=== PATIENT | female | born 1965 | race American Indian/Alaskan Native ===

== ENCOUNTER 2017-01-02 21:09 | Inpatient (IN) | payer OTHER ==
[2017-01-02 23:05] LABS: Basophils % (Auto) 0.4 % (0.0-1.8); Eosinophils % (Auto) 0.8 % (0.0-4.3); Hematocrit 38.2 % (30.3-42.9); Hemoglobin 12.6 gm/dl (10.1-14.3); Mean Corpuscular HGB Conc 33 % (30-34); Mean Corpuscular Hemoglobin 28 pg (28-32); Mean Corpuscular Volume 84 fl (79-97); Platelet Count 195 K/mm3 (140-440); Red Blood Count 4.52 M/mm3 (3.65-5.03); Red Cell Distribution Width 16.8 % (13.2-15.2)
[2017-01-02 23:21] LABS: Anion Gap 15 mmol/L; BUN/Creatinine Ratio 13.33; Blood Urea Nitrogen 12 mg/dL (7-17); Calcium 9.8 mg/dL (8.4-10.2); Carbon Dioxide 30 mmol/L (22-30); Chloride 95.6 mmol/L (98-107); Glucose 101 mg/dL (65-100); Potassium 3.3 mmol/L (3.6-5.0); Sodium 137 mmol/L (137-145)
[2017-01-03] MEDS ORDERED: K-DUR PO ONE (04:05)
[2017-01-03] MEDS ORDERED: NORVASC PO ONE (04:16)
--- NOTE | 2017-01-03 04:25 | Emergency Department Report ---
HPI - General Chief Complaint: Chest Pain Time Seen by Provider: 01/03/17 04:04 - HPI HPI: This is a 51-year-old -[place] female presents to the emergency department with a three-day history of midsternal nonradiating chest pain, palpitations and some nausea without vomiting. She denies any shortness of breath, back pain, diaphoresis. She is not taken anything for symptoms prior to presentation. She has a past medical history of hypertension, GERD, diabetes. No recent travel or sick contacts at home. She has a primary care doctor but has not seen them regarding her symptoms. The patient had a negative stress test in October 2015. There are no aggravating or alleviating factors. Patient drove himself in to be seen today. ED Past Medical Hx - Past Medical History Previous Medical History?: Yes Hx Hypertension: Yes Hx Diabetes: Yes - Surgical History Past Surgical History?: Yes Hx Cholecystectomy: Yes Additional Surgical History: csection x 3 - Social History Smoking Status: Never Smoker Substance Use Type: None - Medications Home Medications: Home Medications Medication Instructions Recorded Confirmed Last Taken Type Pantoprazole [Protonix TAB] 20 mg PO BID #60 tablet. 10/16/15 10/17/15 Unknown Rx metFORMIN [Glucophage] 1,000 mg PO BID #60 tablet 10/17/15 Unknown Rx Carvedilol [Coreg] 25 mg PO BID #60 tablet 08/02/16 Unknown Rx Hydrochlorothiazide [HCTZ] 25 mg PO QDAY #30 tablet 08/02/16 Unknown Rx Ketorolac [Toradol] 10 mg PO Q6H PRN #20 tablet 08/02/16 Unknown Rx amLODIPine [Norvasc] 10 mg PO DAILY #30 tablet 08/02/16 Unknown Rx cloNIDine [Catapres] 0.1 mg PO DAILY #30 tablet 08/02/16 Unknown Rx ED Review of Systems ROS: Stated complaint: CHEST PAIN Other details as noted in HPI Comment: All other systems reviewed and negative Constitutional: denies: chills, fever Eyes: denies: eye pain, eye discharge, vision change ENT: denies: ear pain, throat pain Respiratory: denies: cough, shortness of breath, wheezing Cardiovascular: chest pain, palpitations Gastrointestinal: nausea. denies: abdominal pain, diarrhea Genitourinary: denies: urgency, dysuria, discharge Musculoskeletal: denies: back pain, joint swelling, arthralgia Skin: denies: rash, lesions Neurological: denies: headache, weakness, paresthesias Physical Exam - Physical Exam Vital Signs: Vital Signs 01/02/17 01/03/17 01/03/17 21:59 01:14 02:53 Temperature 98.3 F 98.4 F Pulse Rate 87 77 Respiratory 18 18 Rate Blood Pressure 136/109 197/105 Blood Pressure [Left] O2 Sat by Pulse 100 99 100 Oximetry 01/03/17 01/03/17 01/03/17 02:55 03:01 03:05 Temperature Pulse Rate 77 68 65 Respiratory 14 16 18 Rate Blood Pressure Blood Pressure [Left] O2 Sat by Pulse 100 99 100 Oximetry 01/03/17 01/03/17 01/03/17 03:10 03:15 03:16 Temperature Pulse Rate 70 86 Respiratory 12 19 18 Rate Blood Pressure 195/105 Blood Pressure [Left] O2 Sat by Pulse 100 99 Oximetry 01/03/17 01/03/17 01/03/17 03:18 03:21 03:25 Temperature Pulse Rate 71 74 Respiratory 19 20 Rate Blood Pressure 195/105 195/105 Blood Pressure 195/105 [Left] O2 Sat by Pulse 98 100 Oximetry 01/03/17 01/03/17 01/03/17 03:30 03:35 03:41 Temperature Pulse Rate 68 70 73 Respiratory 16 16 16 Rate Blood Pressure 182/86 182/86 182/86 Blood Pressure [Left] O2 Sat by Pulse 98 99 97 Oximetry 01/03/17 01/03/17 01/03/17 03:45 03:51 03:55 Temperature Pulse Rate 73 76 75 Respiratory 16 17 16 Rate Blood Pressure 186/90 186/90 186/90 Blood Pressure [Left] O2 Sat by Pulse 98 95 96 Oximetry 01/03/17 01/03/17 04:01 04:05 Temperature Pulse Rate 66 67 Respiratory 20 13 Rate Blood Pressure 186/90 158/77 Blood Pressure [Left] O2 Sat by Pulse 100 Oximetry Physical Exam: GENERAL: The patient is well-developed well-nourished. HEENT: Normocephalic. Atraumatic. Extraocular motions are intact. Patient has moist mucous membranes. Pupils equal reactive to light bilaterally. NECK: Supple. Trachea is midline. CHEST/LUNGS: Clear to auscultation. There is no respiratory distress noted. Chest pain is not reproducible to palpation of the chest wall. HEART/CARDIOVASCULAR: Regular. There is no tachycardia. There is no gallop rub or murmur. ABDOMEN: Abdomen is soft, nontender. Patient has normal bowel sounds. There is no abdominal distention. Morbidly obese habitus. SKIN: Skin is warm and dry. NEURO: The patient is awake, alert, and oriented. The patient is cooperative. The patient has no focal neurologic deficits. The patient has normal speech. MUSCULOSKELETAL: There is no tenderness or deformity. There is no limitation range of motion. There is no evidence of acute injury. ED Course Vital Signs 01/02/17 01/03/17 01/03/17 21:59 01:14 02:53 Temperature 98.3 F 98.4 F Pulse Rate 87 77 Respiratory 18 18 Rate Blood Pressure 136/109 197/105 Blood Pressure [Left] O2 Sat by Pulse 100 99 100 Oximetry 01/03/17 01/03/17 01/03/17 02:55 03:01 03:05 Temperature Pulse Rate 77 68 65 Respiratory 14 16 18 Rate Blood Pressure Blood Pressure [Left] O2 Sat by Pulse 100 99 100 Oximetry 01/03/17 01/03/17 01/03/17 03:10 03:15 03:16 Temperature Pulse Rate 70 86 Respiratory 12 19 18 Rate Blood Pressure 195/105 Blood Pressure [Left] O2 Sat by Pulse 100 99 Oximetry 01/03/17 01/03/17 01/03/17 03:18 03:21 03:25 Temperature Pulse Rate 71 74 Respiratory 19 20 Rate Blood Pressure 195/105 195/105 Blood Pressure 195/105 [Left] O2 Sat by Pulse 98 100 Oximetry 01/03/17 01/03/17 01/03/17 03:30 03:35 03:41 Temperature Pulse Rate 68 70 73 Respiratory 16 16 16 Rate Blood Pressure 182/86 182/86 182/86 Blood Pressure [Left] O2 Sat by Pulse 98 99 97 Oximetry 01/03/17 01/03/17 01/03/17 03:45 03:51 03:55 Temperature Pulse Rate 73 76 75 Respiratory 16 17 16 Rate Blood Pressure 186/90 186/90 186/90 Blood Pressure [Left] O2 Sat by Pulse 98 95 96 Oximetry 01/03/17 01/03/17 04:01 04:05 Temperature Pulse Rate 66 67 Respiratory 20 13 Rate Blood Pressure 186/90 158/77 Blood Pressure [Left] O2 Sat by Pulse 100 Oximetry ED Medical Decision Making - Lab Data Result diagrams: 01/02/17 22:42 01/02/17 22:42 - EKG Data -: EKG Interpreted by Me EKG shows normal: sinus rhythm (occasional PVCs), axis, intervals (prolonged KS interval indicating first-degree AV block), QRS complexes (LVH), ST-T waves Rate: normal - EKG Data When compared to previous EKG there are: no significant change Interpretation: unchanged when compared t (10/16/15) - Radiology Data Radiology results: image reviewed interpreted by me: Chest x-ray did not show any acute process. Heart is normal shape and size. No effusions. No pneumothorax. No signs of pneumonia seen. - Medical Decision Making 51-year-old female presents with a 2-3 day history of midsternal chest pain. Patient has a history of diabetes and hypertension and does present with some elevated blood pressure. Patient last had a stress test about 16 months ago. Patient was evaluated with physical exam, labs, imaging EKG. EKG does not show any signs of ST elevation NH. Patient still has a first-degree AV block and LVH. So far the patient has negative troponins 3. She had an elevated and equivocal d-dimer so the patient will have a CT angiography of the chest. Since patient has a few comorbidities/risk factors and has not had a stress test in about a year and a half, the patient will be admitted to hospital for further evaluation and treatment. Patient has been accepted for admission by the hospitalist, Dr. Ayala. - Differential Diagnosis NH, PE, Costochondritis, Pneumonia, CHF Critical Care Time: No Critical care attestation.: If time is entered above; I have spent that time in minutes in the direct care of this critically ill patient, excluding procedure time. ED Disposition Clinical Impression: Substernal chest pain, Hypertensive urgency Obesity Qualifiers: Obesity type: unspecified obesity type Obesity severity: morbid Qualified Code( s): E66.01 - Morbid (severe) obesity due to excess calories Disposition: OP ADMITTED IP TO THIS HOSP Is pt being admited?: Yes Condition: Stable Instructions: Chest Pain (ED) Referrals: PRIMARY CARE, [Primary Care Provider] - 3-5 Days Time of Disposition: 06:15
--- NOTE | 2017-01-03 05:58 | Admit Criteria Form ---
Admission Criteria Documentation: CARDIOLOGY GRG Clinical Indications for Admission to Inpatient Care ( Place 'X' for any and all applicable criteria): Hospital admission is needed for appropriate care of the patient because of ANY ONE of the following (1): [ ] I. Hemodynamic instability as indicated by ALL of the following (1)(2)(3) (4)(5) [ ]a) Vital signs or other findings not as expected for chronic patient condition or baseline [ ]b) Instability indicated by ANY ONE of the following: [ ]i) Hypotension [ ]ii) Symptomatic Tachycardia unresponsive to treatment ( e.g., analgesia, fluids, sedation as indicated) [ ]iii) Inadequate perfusion indicated by ANY ONE of the following: [ ] 1) Lactic acidosis (> 2 mmol/L) [ ] 2) New abnormal capillary refill (> 3 seconds) [ ] 3) Reduced urine output [ ] 4) New altered mental status [ ]iv) Orthostatic vital sign changes unresponsive to treatment (e.g., fluids) [ ]v) IV inotropic or vasopressor medication required to maintain adequate blood pressure or perfusion [ ] II. Severe heart failure as indicated by ANY ONE of the following(17)(18) [ ]a) Respiratory distress [ ]b) Hypotension [ ]c) Anasarca (refractory to outpatient therapy) [ ]d) Cardiac arrhythmias of immediate concern [ ]e) Myocardial ischemia [ ] III. Cardiac arrhythmias or findings of immediate concern indicated by ANY ONE of the following (19)(20): [ ] a) Heart rhythms that are inherently dangerous or unstable indicated by ANY ONE of the following (21)(22)(23): [ ] i) Resuscitated ventricular fibrillation or cardiac arrest [ ] ii) Ventricular escape rhythm [ ] iii) Sustained ventricular tachycardia (30 seconds or more of ventricular rhythm at greater than 100 beats per minute) [ ] iv) Nonsustained ventricular tachycardia and ANY ONE of the following: [ ] 1) Suspected cardiac ischemia as cause or consequence of ventricular tachycardia [ ] 2) In setting of acute myocarditis [ ] b) Unstable cardiac conduction defects indicated by ANY ONE of the following(23)(24)(25) [ ] i) Type II second-degree atrioventricular block [ ]ii) Third-degree atrioventricular block [ ]iii) New-onset left bundle branch block with suspected myocardial ischemia [ ]c) Any heart rhythm and ANY ONE of the following (21)(22)(26)(27) (28) [ ] i) Continuous long-term ECG monitoring needed (e.g., initiation of drug requiring monitoring for more than 24 hours) [ ] ii) Patient has automatic implanted cardioverter defibrillator that is repeatedly firing, malfunctioning, or in need of immediate adjustment of settings beyond the scope of ambulatory or observation care [ ]d) Heart rhythms of concern due to ANY ONE of the following: [ ] i) Hypotension [ ] ii) Respiratory distress [ ] iii) Association with other significant symptoms (e.g., bradycardia with syncope or ongoing dizziness, supraventricular tachycardia with chest pain (14)(15)(17) [ ] IV. Monitoring for cardiac contusion beyond the scope of observation care needed [A](30)(31)(32) [ ] V. Surgical or device complication (e.g., valve replacement complication , pacemaker dysfunction) (35)(41)(44)(45)(46) [ ] . Inpatient palliative care needed. [B](49) Also use Inpatient Palliative Care Criteria [ ] VII. Nonbacterial thrombotic (marantic) endocarditis (36)(43)(47)(48) [X ] VIII. Cardiology condition, symptom, or finding for which emergency and observation care has failed or are not considered appropriate. [ ] IX. Acute valvular disease requiring inpatient as indicated by ANY ONE of the following (41) [ ]a) Acute valvular regurgitation (42) [ ]b) Noninfectious valvulitis (43) [ ]c) Obstructive valve thrombosis [ ]d) Paravalvular leak [ ]e) Other significant valvular disorder remaining after emergency or observation level of care (as appropriate) [ ]X. Pericardial disease requiring inpatient treatment as indicated by ANY ONE of the following (33)(34)(35)(36)(37) [ ]a) Suspected tamponade (38)(39)(40) [ ]b) Hemopericardium [ ]c) Other significant pericardial disorder remaining after emergency or observation level of care (as appropriate) [ ] XI. Cardiac ischemia beyond scope of emergency and observation care. [ ] XII. Hypertension requiring inpatient treatment as indicated by ANY ONE of the following (6)(7)(8) [ ]a) SBP greater than 220 mm Hg or DBP greater than 120 mmHg despite treatment [ ]b) SBP greater than 140 mm Hg or DBP greater than 100 mm Hg with evidence of acute end organ damage as indicated by ANY ONE of the following [ ] i) Altered mental status [ ] ii) Acute renal failure as indicated by new onset of ANY ONE of the following (9)(10)(11)(12)(13) [ ]1) 3-fold rise in serum creatinine from baseline [ ]2) Serum creatinine greater than 4 mg/dL ( 354 micromoles/L) with acute rise greater than 0.5 mg/dL (44.2 micromoles/L) [ ]3) Reduction of more than 75% in estimated glomerular filtration rate from baseline [ ]4) Estimated glomerular filtration rate less than 35 mL/min/1.73m2 (0.59 mL/sec/1.73m2) in child up to 18 years of age [ ]5) Cessation of urine output indicated by ALL of the following [ ]A. Adequate volume status [ ]B. Inadequate urine output as indicated by ANY ONE of the following [ ]a. Urine output less than 0.3 mL/kg/hr for 24 hours [ ]b. Anuria (urine output less than 0.1 mL/kg/hr) for 12 hours [ ] iii) Aortic dissection [ ] iv) Myocardial Ischemia [ ] v) Left ventricular heart failure [ ]vi) Retinal Hemorrhage [ ]vii) Other significant finding [ ]c) Hypertension in child requiring inpatient treatment as indicated by ALL of the following(14)(15)(16) [ ] i) Outpatient treatment not effective, not available, or not appropriate [ ]ii) SBP or DBP greater than 95th percentile for age [ ]iii) Evidence of acute end organ damage as indicated by ANY ONE of the following [ ]1) Altered mental status [ ]2) Acute renal failure as indicated by new onset of ANY ONE of the following(9)(10)(11)(12)(13) [ ]A. 3-fold rise in serum creatinine from baseline [ ]B. Serum creatinine greater than 4 mg/dL (354 micromoles/L) with acute rise greater than 0.5 mg/dL (44.2 micromoles/L) [ ]C. Reduction of more than 75% in estimated glomerular filtration rate from baseline [ ]D. Estimated glomerular filtration rate less than 35 mL/min/1.73m2 (0.59 mL/sec/1.73m2) in child up to 18 years of age [ ]E. Cessation of urine output indicated by ALL of the following [ ]a. Adequate volume status [ ]b. Inadequate urine output as indicated by ANY ONE of the following [ ]i) Urine output less than 0.3 mL/kg/hr for 24 hours [ ]ii) Anuria ( urine output less than 0.1 mL/kg/hr) for 12 hours [ ]3) Severe headache [ ]4) Visual disturbance [ ]5) Retinal hemorrhage [ ]6) Other significant finding [ ]XIII. Complications of transplanted heart indicated by ANY ONE of the following(61): [ ]a) Acute graft rejection requiring inpatient management (eg, intravenous immunosuppression)(62)(63) [ ]b) Acute graft heart failure indicated by ANY ONE of the following(64): [ ]i) Hemodynamic instability [ ]ii) Cardiac arrhythmias of immediate concern [ ]iii) Pulmonary edema that is very severe (eg, mechanical ventilation needed, imminent or likely, need for 100% oxygen to keep oxygen saturation above 90%) [ ]iv) Pulmonary edema that is persistent as indicated by ALL of the following: [ ]1) New need for oxygen therapy to keep oxygen saturation above 90% (or increased FiO2 need from baseline) [ ]2) Has not improved sufficiently with emergency department or observation care IV diuretics or other heart failure treatments[E] [ ]v) Altered mental status that is severe or persistent [ ]vi) Increased creatinine (new on laboratory test) with reduction of more than 50% in estimated glomerular filtration rate from baseline [ ]vii) Progressively (ongoing) rising creatinine (known from past laboratory test) with reduction of more than 25% in estimated glomerular filtration rate from baseline [ ]viii) Acute renal failure [ ]ix) Acute peripheral ischemia (eg, examination shows pulseless, cool, mottled, or cyanotic extremity) [ ]x) Pulmonary artery catheter monitoring needed [ ]xi) Other sign or symptom of heart failure requiring inpatient treatment (ie, too severe or not responsive to outpatient and observation care treatment) [ ]c) Infection requiring inpatient management (eg, Hemodynamic instability, need for intravenous antimicrobial treatment)(66)(67)(68)(69)(70) [ ]d) Cardiac allograft vasculopathy requiring inpatient management ( eg evidence of cardiac ischemia)(71) [ ]e) Other complication of transplanted heart (eg, stroke, severe pulmonary hypertension, severe valvular dysfunction) requiring inpatient management(72) The original [facility] [employer] content created by [facility] has been revised. The portions of the content which have been revised are identified through the use of italic text or in bold, and [facility] has neither reviewed nor approved the modified material. All other unmodified content is copyright [facility] [email or web address]. Please see references footnoted in the original [facility] [email or web address] edition 2016 Admission Criteria Met: Yes
[2017-01-03] MEDS ORDERED: NACL ONE (06:09)
[2017-01-03] MEDS ORDERED: APRESOLINE IV ONE (06:16)
--- NOTE | 2017-01-03 06:59 | XRay Report ---
FINAL REPORT PROCEDURE: CT ANGIO CHEST TECHNIQUE: Computerized tomographic angiography of the chest was performed after the IV injection of iodinated nonionic contrast including image processing. The image data was postprocessed using 2-dimensional multiplanar reformatted (MPR) and 3-dimensional (MIP and/or volume rendered) techniques. HISTORY: CP, elevated dimer COMPARISON: No prior studies are available for comparison. FINDINGS: Heart and pericardium: Normal. Thoracic aorta: Normal. Pulmonary vasculature: Normal. Lymph nodes: No enlarged thoracic lymph nodes. Lungs: Lungs are well-expanded. There are no infiltrates, effusions or pneumothoraces.. Pleural space: No effusion, thickening, or pneumothorax. Musculoskeletal structures: No significant abnormality. Upper abdominal structures: Images of the upper abdomen demonstrate mucosal thickening of the stomach suggesting possible gastritis. There has been a cholecystectomy.. IMPRESSION: There is no thoracic aortic aneurysm or dissection. There is no pulmonary embolism. Lungs are well-expanded. There are no infiltrates, effusions or pneumothoraces.. Images of the upper abdomen demonstrate mucosal thickening of the stomach suggesting possible gastritis. There has been a cholecystectomy..
--- NOTE | 2017-01-03 07:27 | History and Physical Report ---
History of Present Illness Date of examination: 01/03/17 Date of admission: 01/03/17 Chief complaint: Intermittent chest pain for the last 3 days History of present illness: Very pleasant morbidly obese 51-year-old -Martiniquais female patient with significant past medical history of hypertension diabetes mellitus gastroesophageal reflux disease presented to the emergency room fifth intermittent chest pain of 3 days' duration Patient grades her chest pain between 5-7/10 intermittent last for about 10 min associated with nausea no vomiting and no diaphoresis Patient reports that it radiates to back sometimes, denies any shortness of breath or cough No orthopnea or paroxysmal nocturnal dyspnea, no aggravating or relieving factors Had similar symptoms in the past and had a negative stress test more than one year ago No history of fever no urinary symptoms Initial workup in the emergency room, 3 sets of cardiac enzymes negative EKG no acute ST-T changes, symptoms hemodynamically stable Past History Past Medical History: diabetes, GERD, hypertension Past Surgical History: cholecystectomy, (3) Social history: lives with family, full code, other (employed). denies: smoking , alcohol abuse, prescription drug abuse Family history: hypertension Medications and Allergies Allergies Allergy/AdvReac Type Severity Reaction Status Date / Time NARESH Inhibitors Allergy Anaphylaxis Verified 05/30/14 01:03 Home Medications Medication Instructions Recorded Confirmed Last Taken Type Pantoprazole [Protonix TAB] 20 mg PO BID #60 tablet. 10/16/15 10/17/15 Unknown Rx metFORMIN [Glucophage] 1,000 mg PO BID #60 tablet 10/17/15 Unknown Rx Carvedilol [Coreg] 25 mg PO BID #60 tablet 08/02/16 Unknown Rx Hydrochlorothiazide [HCTZ] 25 mg PO QDAY #30 tablet 08/02/16 Unknown Rx Ketorolac [Toradol] 10 mg PO Q6H PRN #20 tablet 08/02/16 Unknown Rx amLODIPine [Norvasc] 10 mg PO DAILY #30 tablet 08/02/16 Unknown Rx cloNIDine [Catapres] 0.1 mg PO DAILY #30 tablet 08/02/16 Unknown Rx Active Meds: Active Medications Amlodipine Besylate (Norvasc) 10 mg PO DAILY [facility] Aspirin (Aspirin) 325 mg PO QDAY [facility] Carvedilol (Coreg) 25 mg PO BID K[facility] Clonidine HCl (Catapres) 0.1 mg PO DAILY K[facility]URRAM Enoxaparin Sodium (Lovenox) 40 mg SUB-Q QDAY [facility] Hydrochlorothiazide (Hctz) 25 mg PO QDAY [facility] Metformin HCl (Glucophage) 1,000 mg PO BID K[facility]UR[facility] Pantoprazole Sodium (Protonix) 20 mg PO BID [facility] Review of Systems Constitutional: no weight loss, no weight gain, no fever, no chills Ears, nose, mouth and throat: no nasal congestion, no nasal discharge Cardiovascular: chest pain, no orthopnea, no palpitations, no syncope, no lightheadedness, no shortness of breath Respiratory: no cough, no shortness of breath Gastrointestinal: nausea, no abdominal pain, no vomiting Genitourinary Female: no dysuria, no hematuria Musculoskeletal: no myalgias, no arthritis Integumentary: no rash, no lesions Neurological: no weakness, no numbness, no seizures Psychiatric: no anxiety, no depression Endocrine: no cold intolerance, no heat intolerance, no polydipsia, no polyuria Hematologic/Lymphatic: no easy bruising, no easy bleeding Allergic/Immunologic: no urticaria, no allergic rhinitis Exam - Constitutional Vitals: Temp Pulse Resp BP Pulse Ox 98.4 F 79 13 199/102 100 01/03/17 01:14 01/03/17 07:12 01/03/17 04:05 01/03/17 07:12 01/03/17 04:05 General appearance: Present: no acute distress, well-nourished, obese (morbidly obese) - EENT Eyes: Present: PERRL, EOM intact - Neck Neck: Present: supple, normal ROM - Respiratory Respiratory effort: normal Respiratory: bilateral: diminished, negative: rales, rhonchi, wheezing - Cardiovascular Rhythm: regular Heart Sounds: Present: S1 & S2 - Extremities Extremities: no ischemia, pulses intact, pulses symmetrical Peripheral Pulses: within normal limits - Abdominal General gastrointestinal: Present: soft, non-tender, non-distended, normal bowel sounds - Integumentary Integumentary: Present: clear, warm - Musculoskeletal Musculoskeletal: strength equal bilaterally - Psychiatric Psychiatric: appropriate mood/affect, cooperative - Neurologic Neurologic: CNII-XII intact, moves all extremities Results - Labs CBC & Chem 7: 01/02/17 22:42 01/02/17 22:42 Labs: Abnormal lab results 04/03/17 04/03/17 04/04/17 Range/Units 22:42 22:42 04:34 RDW 16.8 H (13.2-15.2) % Lymph % (Auto) 35.1 H (13.4-35.0) % [place] % (Auto) 8.1 H (0.0-7.3) % D-Dimer 384.87 H (0-234) ng/mlDDU Potassium 3.3 L (3.6-5.0) mmol/L Chloride 95.6 L (98-107) mmol/L Glucose 101 H (65-100) mg/dL Assessment and Plan --Angina at rest Rule out acute coronary syndrome, Cardiac enzymes 3 negative, in view of patient's multiple risk factors Would benefit by nuclear stress test to rule out reversible ischemia If abnormal, consult cardiology for possible heart cath Start aspirin and beta blockers and nitrates and statins, no NARESH inhibitor since patient is allergic to them Morphine for pain and Lovenox --Hypertension moderate control Resume home antihypertensives and when necessary medications --2 diabetes mellitus Accu-Chek sliding scale coverage and ADA diet and oral hypoglycemics Patient is on metformin, and had CT angiogram of the chest today Will hold metformin for 48 hours --Morbid obesity Counseling done patient advised dietary modification and exercise as tolerated and weight reduction When medically stable Patient also would benefit by outpatient evaluation by bariatric surgical team for weight reduction program Patient verbalized understanding --DVT prophylaxis with Lovenox Closely monitor the patient and adjust the management as needed Plan of care discussed with the patient as well as her nurse I also discussed the case with the ER physician Disposition admit to telemetry Possible discharge in 1-2 days if stable and if the workup is negative
[2017-01-03] MEDS ORDERED: MORPHINE IV ONE (07:56)
[2017-01-03] MEDS ORDERED: GLUCOPHAGE PO SCH (08:00)
[2017-01-03] MEDS ORDERED: LEXISCAN IV ONE ×2 (09:02→09:08)
[2017-01-03] MEDS ORDERED: LOVENOX SUB-Q SCH (10:00)
[2017-01-03] MEDS ORDERED: COREG PO SCH (10:00)
[2017-01-03] MEDS ORDERED: ASPIRIN PO SCH (10:00)
[2017-01-03] MEDS ORDERED: CATAPRES PO SCH (10:00)
[2017-01-03] MEDS ORDERED: PROTONIX PO SCH (10:00)
[2017-01-03] MEDS ORDERED: HCTZ PO SCH (10:00)
[2017-01-03] MEDS ORDERED: NOVOLOG SUB-Q SCH (11:30)
--- NOTE | 2017-01-03 12:20 | Event Note ---
Date: 01/03/17 Stress test this AM negative for ischemia, EF 64%. Results relayed to ED. Stephen BERGERON NP / DR. WILKINS
--- NOTE | 2017-01-03 13:12 | Treadmill Report ---
PROCEDURE: Single isotope dual study myocardial perfusion scan. REFERRING PHYSICIAN: Natalie Jackson MD DESCRIPTION OF PROCEDURE: The patient received 10 mCi of technetium 99m Myoview intravenously under resting condition. Resting myocardial perfusion scan was done. Subsequently, the patient received intravenous Lexiscan as per the protocol. After 30-60 minutes, post stress images were done. Computerized reconstruction images were performed for analysis. The post-stress images did not reveal any perfusion abnormality. Gated study did not reveal any wall motion abnormality. The left ventricular ejection fraction was normal and was calculated to be 64%. The resting images were also normal. CONCLUSION: 1. Normal resting and stress images after the patient underwent Lexiscan stress test. 2. No wall motion abnormality. 3. Normal left ventricular ejection fraction of 64%. JOB# [id number] [facility]
[2017-01-03 13:38] VITALS: BP 144/77
--- NOTE | 2017-01-03 13:48 | Discharge Summary ---
Providers - Providers Date of Admission: 01/03/17 07:21 Date of discharge: 01/03/17 Attending physician: LORELEI HOGAN Primary care physician: CLOTHING RO[employer] SUPERVISOR Hospitalization Reason for admission: left-sided chest pain Condition: Stable Pertinent studies: Lexiscan stress test; negative for reversible ischemia, normal left ventricular function CT angiogram of the chest; no pulmonary embolism or thoracic aortic aneurysm or dissection, no infiltrate or effusions Mucosal thickening of the stomach suggesting possible gastritis Hospital course: Very pleasant morbidly obese 51-year-old -[place] female patient was admitted with left-sided chest pain Patient had 3 sets of for negative cardiac enzymes, in view of patient's multiple risk factors, patient underwent Lexiscan stress test which was negative for reversible ischemia with preserved left ventricular function Patient was symptomatically managed, symptoms significantly improved Patient is on metformin for her diabetes, however since patient had CT angiogram of the chest with contrast, patient was advised to hold metformin for 48 hours and resume on 01/05/2017 in the morning Today she is comfortable in bed alert awake oriented 3 Vital signs are stable [id number] evaluation physical examination done by me prior to discharge did not have any changes Hemodynamically and clinically stable for discharge and does not need any further acute inpatient care at this point Advise dietary modification and exercise as tolerated and weight reduction Advised to be compensated medications and diet If she should have recurrent chest pain or shortness of, she may need extensive cardiac evaluation as outpatient however advised to go to the emergency room as needed Final diagnosis; Atypical chest pain resolved Stress test negative Symptoms probably secondary to gastroesophageal reflux disease Costochondritis Type 2 diabetes mellitus Hypertension Morbid obesity Disposition: DISCHARGED TO HOME OR SELFCARE Time spent for discharge: 31 Core Measure Documentation - Palliative Care Palliative Care/ Comfort Measures: Not Applicable - Core Measures Any of the following diagnoses?: none Exam - Constitutional Vitals: Temp Pulse Resp BP Pulse Ox 98.4 F 88 22 144/77 100 01/03/17 01:14 01/03/17 13:38 01/03/17 12:41 01/03/17 13:38 01/03/17 12:41 General appearance: Present: no acute distress, well-nourished - EENT Eyes: Present: PERRL, EOM intact - Neck Neck: Present: supple, normal ROM - Respiratory Respiratory effort: normal Respiratory: negative: rales, rhonchi, wheezing - Cardiovascular Rhythm: regular Heart Sounds: Present: S1 & S2 - Extremities Extremities: no ischemia, pulses intact, pulses symmetrical Peripheral Pulses: within normal limits - Abdominal General gastrointestinal: Present: soft, non-tender, non-distended, normal bowel sounds - Integumentary Integumentary: Present: clear, warm - Musculoskeletal Musculoskeletal: strength equal bilaterally, generalized weakness - Psychiatric Psychiatric: appropriate mood/affect, cooperative - Neurologic Neurologic: CNII-XII intact, moves all extremities Plan Activity: no restrictions Diet: low salt, diabetic Additional Instructions: f/u clinical interviewer out patient for further evaluation if you have recurrent chest pain or go to ER. exercise as tolerated and weight reduction. Stop metformin for 48 hours , can resume on 01/05/2017 a.m. Follow up with: PRIMARY CARE, [Primary Care Provider] - 3-5 Days Prescriptions: Carvedilol [Coreg] 25 mg PO BID #60 tablet oxyCODONE /ACETAMINOPHEN [Percocet 5/325] 1 tab PO BID PRN #10 tablet PRN Reason: Pain
[2017-01-04] MEDS ORDERED: NORVASC PO SCH (10:00)
== END 2017-01-03 15:10 | disposition home or self-care (01) | DRG 392 ==
LOC: ED 21:09 → 4A 01-03 07:21
PROVIDERS: ADMIT Internal Medicine; ATTEND Internal Medicine
DX: K21.9 Gastro-esophageal reflux disease without esophagitis (principal); Z68.42 Body mass index [BMI] 45.0-49.9, adult; I10 Essential (primary) hypertension; E11.9 Type 2 diabetes mellitus without complications; E66.01 Morbid (severe) obesity due to excess calories; M94.0 Chondrocostal junction syndrome [Tietze]; Z98.891 History of uterine scar from previous surgery; Z90.49 Acquired absence of other specified parts of digestive tract; Z82.49 Family history of ischemic heart disease and other diseases of the circulatory system; Z88.8 Allergy status to other drugs, medicaments and biological substances; Z71.3 Dietary counseling and surveillance
CPT/HCPCS: 36415; 71010; 71275; 78452; 80048; 82962; 84484; 85025; 85379; 93005; 93010; 93017; A9502; J0360; J2270; J2785; Q9967

== ENCOUNTER 2017-01-09 04:32 | Emergency (ER) | payer OTHER ==
[2017-01-09 05:12] LABS: Basophils % (Auto) 0.3 % (0.0-1.8); Eosinophils % (Auto) 0.7 % (0.0-4.3); Hematocrit 35.2 % (30.3-42.9); Hemoglobin 11.4 gm/dl (10.1-14.3); Mean Corpuscular HGB Conc 32 % (30-34); Mean Corpuscular Hemoglobin 28 pg (28-32); Mean Corpuscular Volume 85 fl (79-97); Platelet Count 197 K/mm3 (140-440); Red Blood Count 4.12 M/mm3 (3.65-5.03); Red Cell Distribution Width 16.2 % (13.2-15.2); White Blood Count 6.1 K/mm3 (4.5-11.0)
[2017-01-09 05:39] LABS: Bilirubin,Urine NEG (Negative)
[2017-01-09 05:40] LABS: Blood,Urine NEG (Negative); Ketones,Urine NEG (Negative); Leukocyte Esterase,Urine NEG (Negative); Nitrite,Urine NEG (Negative); Protein,Urine <15 mg/dL mg/dL (Negative); Urobilinogen,Urine < 2.0 mg/dL (<2.0); WBC,Urine < 1.0 /HPF (0.0-6.0)
[2017-01-09 06:12] LABS: Alanine Aminotransferase 13 units/L (7-56); Albumin 3.5 g/dL (3.9-5); Albumin/Globulin Ratio 0.9 %; Alkaline Phosphatase 84 units/L (35-129); Anion Gap 17 mmol/L; BUN/Creatinine Ratio 8.57; Bilirubin,Total 0.3 mg/dL (0.1-1.2); Blood Urea Nitrogen 6 mg/dL (7-17); Calcium 9.1 mg/dL (8.4-10.2); Carbon Dioxide 27 mmol/L (22-30); Chloride 101.6 mmol/L (98-107); Glucose 124 mg/dL (65-100); Lipase 17 units/L (13-60); Potassium 3.7 mmol/L (3.6-5.0); Sodium 142 mmol/L (137-145); Total Protein 7.4 g/dL (6.3-8.2)
[2017-01-09 08:36] VITALS: BP 150/63
[2017-01-09] MEDS ORDERED: ZOFRAN IM ONE (09:06)
[2017-01-09] MEDS ORDERED: MORPHINE IM ONE (09:06)
[2017-01-09] MEDS ORDERED: ALUM-MAG HYDROX-SIMETH 200-200-20MG/5ML PO ONE (09:06)
[2017-01-09] MEDS ORDERED: LIDOCAINE VISCOUS 2% PO ONE (09:06)
--- NOTE | 2017-01-09 10:16 | Emergency Department Report ---
ED Chest Pain HPI - General Chief Complaint: Chest Pain Stated Complaint: CP/ABD PAIN Time Seen by Provider: 01/09/17 08:54 Source: patient, old records reviewed Mode of arrival: Ambulatory Limitations: No Limitations - History of Present Illness Initial Comments: 51-year-old female with a past medical history hypertension, diabetes, and previous cholecystectomy presents to the hospital complains of chest pain or radiates to the epigastrium 1 week. Patient apparently had similar pain here earlier this month and was subsequently admitted January 03 day for chest pain. During that evaluation patient had a negative Lexiscan stress test, CT angiogram that was negative for PE, dissection, aneurysm, or infiltrates. CT scan coincidentally did have mucosal thickening of the stomach suggesting possible gastritis. Patient was diagnosed with costochondritis and GERD and discharged home with Percocet. Patient is now out of pain medication and reports worsening pain. Chest pain at the sternal area, rated moderate to severe, is intermittent, worse with palpation and movement as is the epigastric pain. Positive nausea without associated vomiting, melena, fever, or hematochezia. No reports of shortness of breath or cough. Patient does admit to recent heavy lifting. PMD: None currently but planning to follow with [facility] Severity scale (0 -10): 10 - Related Data Previous Rx's Medication Instructions Recorded Last Taken Type Hydrochlorothiazide [HCTZ] 25 mg PO QDAY #30 tablet 08/02/16 Unknown Rx Ketorolac [Toradol] 10 mg PO Q6H PRN #20 tablet 08/02/16 Unknown Rx amLODIPine [Norvasc] 10 mg PO DAILY #30 tablet 08/02/16 Unknown Rx cloNIDine [Catapres] 0.1 mg PO DAILY #30 tablet 08/02/16 Unknown Rx Aspirin [Aspirin TAB] 325 mg PO QDAY tablet 01/03/17 Unknown Rx Carvedilol [Coreg] 25 mg PO BID #60 tablet 01/03/17 Unknown Rx oxyCODONE /ACETAMINOPHEN [Percocet 1 tab PO BID PRN #10 tablet 01/03/17 Unknown Rx 5/325] HYDROcodone/APAP 5-325 [[place] 1 each PO Q6HR PRN #20 tablet 01/09/17 Unknown Rx 5/325] Pantoprazole [Protonix TAB] 20 mg PO BID #60 tablet 01/09/17 Unknown Rx traMADol [Ultram 50 MG tab] 50 mg PO Q6HR PRN #20 tablet 01/09/17 Unknown Rx Allergies Allergy/AdvReac Type Severity Reaction Status Date / Time NARESH Inhibitors Allergy Anaphylaxis Verified 05/30/14 01:03 TD score - Td Score Age > 65: (0) No Aspirin use within the Past 7 Days: (0) No 3 or more CAD Risk Factors: (1) Yes 2 or more Angina events in past 24 hrs: (1) Yes Known CAD with more than 50% Stenosis: (0) No Elevated Cardiac Markers: (0) No ST Deviation Greater than 0.5mm: (0) No TD Score: 2 ED Review of Systems ROS: Stated complaint: CP/ABD PAIN Other details as noted in HPI Comment: All other systems reviewed and negative Other: Constitutional: No fevers chills or weight loss Eyes: No eye pain visual changes or discharge ENT: No ear pain or throat pain Neck: Denies pain Respiratory: Denies cough wheezing shortness of breath Cardiovascular: Denies palpitations, syncope GI: As per HPI : Denies dysuria Musculoskeletal: Denies back pain, joint swelling Skin: Denies rash, lesions, erythema Neurologic: Denies headache, numbness, weakness Psychiatric: Denies suicidal ideation, hallucinations ED Past Medical Hx - Past Medical History Previous Medical History?: Yes Hx Hypertension: Yes Hx Diabetes: Yes Additional medical history: Negative Lexiscan stress test December 2069 - Surgical History Past Surgical History?: Yes Hx Cholecystectomy: Yes Additional Surgical History: csection x 3 - Social History Smoking Status: Former Smoker Substance Use Type: None - Medications Home Medications: Home Medications Medication Instructions Recorded Confirmed Last Taken Type Hydrochlorothiazide [HCTZ] 25 mg PO QDAY #30 tablet 08/02/16 Unknown Rx Ketorolac [Toradol] 10 mg PO Q6H PRN #20 tablet 08/02/16 Unknown Rx amLODIPine [Norvasc] 10 mg PO DAILY #30 tablet 08/02/16 Unknown Rx cloNIDine [Catapres] 0.1 mg PO DAILY #30 tablet 08/02/16 Unknown Rx Aspirin [Aspirin TAB] 325 mg PO QDAY tablet 01/03/17 Unknown Rx Carvedilol [Coreg] 25 mg PO BID #60 tablet 01/03/17 Unknown Rx oxyCODONE /ACETAMINOPHEN [Percocet 1 tab PO BID PRN #10 tablet 01/03/17 Unknown Rx 5/325] HYDROcodone/APAP 5-325 [[place] 1 each PO Q6HR PRN #20 tablet 01/09/17 Unknown Rx 5/325] Pantoprazole [Protonix TAB] 20 mg PO BID #60 tablet. 01/09/17 Unknown Rx traMADol [Ultram 50 MG tab] 50 mg PO Q6HR PRN #20 tablet 01/09/17 Unknown Rx ED Physical Exam - General Limitations: No Limitations - Other Other exam information: General: No limitations, patient is alert in no acute distress Head exam: Atraumatic, normocephalic Eyes exam: Normal appearance, pupils equal reactive to light, extraocular movements intact ENT: Moist mucous membrane, normal oropharynx Neck exam: Normal inspection, full range of motion, no meningismus nontender Respiratory exam: Clear to auscultation bilateral, no wheezes, rales, crackles Cardiovascular: Normal rate and rhythm, reproducible chest wall tenderness at the sternum Abdomen: Soft, nondistended, epigastric tenderness, with normal bowel sounds, no rebound, or guarding Extremity: Full range of motion normal inspection no deformity Back: Normal Inspection, full range of motion, no tenderness Neurologic: Alert, oriented x3, cranial nerves intact, no motor or sensory deficit Psychiatric: normal affect, normal mood Skin: Warm, dry, intact ED Course Vital Signs 01/09/17 01/09/17 01/09/17 04:37 08:35 09:41 Temperature 98.7 F 98.2 F Pulse Rate 70 64 Respiratory 18 18 18 Rate Blood Pressure 187/94 Blood Pressure 150/63 [Right] O2 Sat by Pulse 100 98 98 Oximetry - Reevaluation(s) Reevaluation #1: 01/09/17 10:17 Patient seen morphine and Zofran IM for pain in addition to GI cocktail ED Medical Decision Making - Lab Data Result diagrams: 01/09/17 05:01 01/09/17 05:01 Lab Results 01/09/17 01/09/17 01/09/17 Range/Units 05:01 05:01 05:17 WBC 6.1 (4.5-11.0) K/mm3 RBC 4.12 (3.65-5.03) M/mm3 Hgb 11.4 (10.1-14.3) gm/dl Hct 35.2 (30.3-42.9) % MCV 85 (79-97) fl MCH 28 (28-32) pg MCHC 32 (30-34) % RDW 16.2 H (13.2-15.2) % Plt Count 197 (140-440) K/mm3 Lymph % (Auto) 21.5 (13.4-35.0) % [place] % (Auto) 7.5 H (0.0-7.3) % Eos % (Auto) 0.7 (0.0-4.3) % Baso % (Auto) 0.3 (0.0-1.8) % Lymph # 1.3 (1.2-5.4) K/mm3 [place] # 0.5 (0.0-0.8) K/mm3 Eos # 0.0 (0.0-0.4) K/mm3 Baso # 0.0 (0.0-0.1) K/mm3 Seg Neutrophils % 70.0 (40.0-70.0) % Seg Neutrophils # 4.3 (1.8-7.7) K/mm3 Sodium 142 (137-145) mmol/L Potassium 3.7 (3.6-5.0) mmol/L Chloride 101.6 (98-107) mmol/L Carbon Dioxide 27 (22-30) mmol/L Anion Gap 17 mmol/L BUN 6 L (7-17) mg/dL Creatinine 0.7 (0.7-1.2) mg/dL Estimated GFR > 60 ml/min BUN/Creatinine Ratio 8.57 % Glucose 124 H (65-100) mg/dL Calcium 9.1 (8.4-10.2) mg/dL Total Bilirubin 0.3 (0.1-1.2) mg/dL AST 14 (5-40) units/L ALT 13 (7-56) units/L Alkaline Phosphatase 84 (35-129) units/L Troponin T < 0.010 (0.00-0.029) ng/mL Total Protein 7.4 (6.3-8.2) g/dL Albumin 3.5 L (3.9-5) g/dL Albumin/Globulin Ratio 0.9 % Lipase 17 (13-60) units/L Urine Color Yellow (Yellow) Urine Turbidity Clear (Clear) Urine pH 7.0 (5.0-7.0) Ur Specific [place] 1.012 (1.003-1.030) Urine Protein <15 mg/dl (Negative) mg/dL Urine Glucose (UA) Neg (Negative) mg/dL Urine Ketones Neg (Negative) mg/dL Urine Blood Neg (Negative) Urine Nitrite Neg (Negative) Urine Bilirubin Neg (Negative) Urine Urobilinogen < 2.0 (<2.0) mg/dL Ur Leukocyte Esterase Neg (Negative) Urine WBC (Auto) < 1.0 (0.0-6.0) /HPF Urine RBC (Auto) 1.0 (0.0-6.0) /HPF U Epithel Cells (Auto) 2.0 (0-13.0) /HPF 01/09/17 Range/Units 07:33 WBC (4.5-11.0) K/mm3 RBC (3.65-5.03) M/mm3 Hgb (10.1-14.3) gm/dl Hct (30.3-42.9) % MCV (79-97) fl MCH (28-32) pg MCHC (30-34) % RDW (13.2-15.2) % Plt Count (140-440) K/mm3 Lymph % (Auto) (13.4-35.0) % [place] % (Auto) (0.0-7.3) % Eos % (Auto) (0.0-4.3) % Baso % (Auto) (0.0-1.8) % Lymph # (1.2-5.4) K/mm3 [place] # (0.0-0.8) K/mm3 Eos # (0.0-0.4) K/mm3 Baso # (0.0-0.1) K/mm3 Seg Neutrophils % (40.0-70.0) % Seg Neutrophils # (1.8-7.7) K/mm3 Sodium (137-145) mmol/L Potassium (3.6-5.0) mmol/L Chloride (98-107) mmol/L Carbon Dioxide (22-30) mmol/L Anion Gap mmol/L BUN (7-17) mg/dL Creatinine (0.7-1.2) mg/dL Estimated GFR ml/min BUN/Creatinine Ratio % Glucose (65-100) mg/dL Calcium (8.4-10.2) mg/dL Total Bilirubin (0.1-1.2) mg/dL AST (5-40) units/L ALT (7-56) units/L Alkaline Phosphatase (35-129) units/L Troponin T < 0.010 (0.00-0.029) ng/mL Total Protein (6.3-8.2) g/dL Albumin (3.9-5) g/dL Albumin/Globulin Ratio % Lipase (13-60) units/L Urine Color (Yellow) Urine Turbidity (Clear) Urine pH (5.0-7.0) Ur Specific [place] (1.003-1.030) Urine Protein (Negative) mg/dL Urine Glucose (UA) (Negative) mg/dL Urine Ketones (Negative) mg/dL Urine Blood (Negative) Urine Nitrite (Negative) Urine Bilirubin (Negative) Urine Urobilinogen (<2.0) mg/dL Ur Leukocyte Esterase (Negative) Urine WBC (Auto) (0.0-6.0) /HPF Urine RBC (Auto) (0.0-6.0) /HPF U Epithel Cells (Auto) (0-13.0) /HPF - EKG Data -: EKG Interpreted by Me (nsr rate 70, Pac's, no stemi) - EKG Data When compared to previous EKG there are: no significant change (compared to ) - Medical Decision Making Patient has relief in her pain after ED medications. She is not currently taking a PPI at home. She will be discharged home for non-NSAID pain medication and PPI for current symptoms of costochondritis and GERD/gastritis. - Differential Diagnosis gastritis, costochondritis, chest wall strain, atypical chest pain Critical Care Time: No Critical care attestation.: If time is entered above; I have spent that time in minutes in the direct care of this critically ill patient, excluding procedure time. ED Disposition Clinical Impression: Costochondritis Gastritis Qualifiers: Gastritis type: unspecified gastritis Chronicity: unspecified Gastritis bleeding: without bleeding Qualified Code(s): K29.70 - Gastritis, unspecified, without bleeding Disposition: DISCHARGED TO HOME OR SELFCARE Is pt being admited?: No Does the pt Need Aspirin: No Condition: Stable Instructions: Costochondritis (ED), Gastritis (ED) Additional Instructions: Take either the hydrocodone ([place]) or tramadol for pain (do not take both at the same time). Hydrocodone is stronger and may cause more drowsiness. Both of these medications may cause constipation. Take the Prilosec daily as instructed. Follow-up with your primary care doctor for further evaluation Prescriptions: HYDROcodone/APAP 5-325 [[place] 5/325] 1 each PO Q6HR PRN #20 tablet PRN Reason: Pain Pantoprazole [Protonix TAB] 20 mg PO BID #60 tablet. traMADol [Ultram 50 MG tab] 50 mg PO Q6HR PRN #20 tablet PRN Reason: Pain Referrals: DARRYL JOHNSON MD, PHD [Primary Care Provider] - 3-5 Days Time of Disposition: 10:24
== END 2017-01-09 11:03 | disposition home or self-care (01) ==
LOC: ED 04:32
DX: M94.0 Chondrocostal junction syndrome [Tietze] (principal); K29.70 Gastritis, unspecified, without bleeding; I10 Essential (primary) hypertension; E11.9 Type 2 diabetes mellitus without complications
CPT/HCPCS: 36415; 80048; 80053; 81001; 83690; 84484; 85025; 93005; 93010; 96372; 99284; J2270; J2405

== ENCOUNTER 2018-12-07 10:32 | Outpatient (CLI) | payer OTHER ==
--- NOTE | 2018-12-07 15:42 | Mammography Report ---
BILATERAL DIGITAL SCREENING MAMMOGRAM with CAD: 12/07/18 10:32:00 CLINICAL: Routine screening. COMPARISON:None available. FINDINGS: The breasts are almost entirely fatty. No mass, architectural distortion or suspicious calcifications. IMPRESSION: No mammographic evidence of malignancy. BI-RADS CATEGORY: 1 - - Negative RECOMMENDATION: Routine mammographic screening in one year. COMMENT: Patient follow-up letters are generated by our [employer] application.
== END 2018-12-07 10:33 | disposition home or self-care (01) ==
LOC: SPVWC 10:32
DX: Z12.31 Encounter for screening mammogram for malignant neoplasm of breast (principal); E66.9 Obesity, unspecified; I10 Essential (primary) hypertension; M19.90 Unspecified osteoarthritis, unspecified site; Z90.49 Acquired absence of other specified parts of digestive tract
CPT/HCPCS: 77067

== ENCOUNTER 2019-06-02 01:39 | Observation (INO) | payer OTHER ==
--- NOTE | 2019-06-02 02:37 | XRay Report ---
CHEST 1 VIEW 06/02/2019 2:26 AM INDICATION / CLINICAL INFORMATION: Chest Pain. COMPARISON: Chest x-ray 08/12/2018 FINDINGS: SUPPORT DEVICES: None. HEART / MEDIASTINUM: No significant abnormality. LUNGS / PLEURA: No significant pulmonary or pleural abnormality. No pneumothorax. ADDITIONAL FINDINGS: No significant additional findings. IMPRESSION: 1. No acute findings. Signer Name: Ron Christiansen MD Signed: 06/02/2019 2:32 AM Workstation Name: [id number]
[2019-06-02 03:06] LABS: Basophils % (Auto) 0.4 % (0.0-1.8); Eosinophils % (Auto) 0.8 % (0.0-4.3); Hematocrit 34.9 % (30.3-42.9); Hemoglobin 11.7 gm/dl (10.1-14.3); Lymphocytes # (Auto) 1.7 K/mm3 (1.2-5.4); Lymphocytes % (Auto) 34.9 % (13.4-35.0); Mean Corpuscular HGB Conc 34 % (30-34); Mean Corpuscular Volume 85 fl (79-97); Monocytes # (Auto) 0.3 K/mm3 (0.0-0.8); Platelet Count 215 K/mm3 (140-440); Red Blood Count 4.12 M/mm3 (3.65-5.03); Red Cell Distribution Width 16.7 % (13.2-15.2)
[2019-06-02 03:24] LABS: BUN/Creatinine Ratio 16; Blood Urea Nitrogen 13 mg/dL (7-17); Calcium 9.7 mg/dL (8.4-10.2); Hemolysis Index 15
[2019-06-02] MEDS ORDERED: ASPIRIN PO ONE (03:55)
[2019-06-02] MEDS ORDERED: NITROSTAT SL PRN ×2 (03:55→05:03)
--- NOTE | 2019-06-02 04:31 | Emergency Department Report ---
ED Chest Pain HPI - General Chief Complaint: Chest Pain Stated Complaint: CHEST/BACK PAIN Time Seen by Provider: 06/02/19 03:49 Source: patient Mode of arrival: Ambulatory Limitations: No Limitations - History of Present Illness Initial Comments: Patient is a 54-year-old female with past history of diabetes hypertension who had a stress test December 2016 which was negative presenting with chest pressure. His chest pain is 8 out of 10 in severity at its worse and is associated with diaphoresis. There's been no nausea. Patient does have assoc iated shortness of breath. Patient states that the shortness of breath and chest heaviness, occur at random. Patient states she is getting it with exertion and sometimes with rest. She denies fevers chills cough cold congestion at this time. Patient also states that she has a history of chronic lower back pain over this is not usually associated with chest pain. Severity scale (0 -10): 7 - Related Data Previous Rx's Medication Instructions Recorded Last Taken Type amLODIPine [Norvasc] 10 mg PO DAILY #30 tablet 08/02/16 Unknown Rx cloNIDine [Catapres] 0.1 mg PO DAILY #30 tablet 08/02/16 Unknown Rx hydroCHLOROthiazide [HCTZ] 25 mg PO QDAY #30 tablet 08/02/16 Unknown Rx Aspirin 325 mg PO QDAY tablet 01/03/17 Unknown Rx Carvedilol [Coreg] 25 mg PO BID #60 tablet 01/03/17 Unknown Rx traMADol [Ultram 50 MG tab] 50 mg PO Q6HR PRN tablet 08/13/18 Unknown Rx Allergies Allergy/AdvReac Type Severity Reaction Status Date / Time NARESH Inhibitors Allergy Anaphylaxis Verified 05/30/14 01:03 Heart Score - HEART Score History: Moderately suspicious EKG: Non-specific Age: 45-65 Risk factors: 1-2 risk factors Troponin: < normal limit HEART Score: 4 ED Review of Systems ROS: Stated complaint: CHEST/BACK PAIN Other details as noted in HPI Comment: All other systems reviewed and negative ED Past Medical Hx - Past Medical History Previous Medical History?: Yes Hx Hypertension: Yes Hx Congestive Heart Failure: No Hx Diabetes: Yes Hx Arthritis: Yes Hx Asthma: No Hx COPD: No Additional medical history: Negative Lexiscan stress test December 2016. gout, Gallstones - Surgical History Past Surgical History?: Yes Hx Cholecystectomy: Yes Additional Surgical History: csection x 3 - Social History Smoking Status: Never Smoker - Medications Home Medications: Home Medications Medication Instructions Recorded Confirmed Last Taken Type amLODIPine [Norvasc] 10 mg PO DAILY #30 tablet 08/02/16 08/12/18 Unknown Rx cloNIDine [Catapres] 0.1 mg PO DAILY #30 tablet 08/02/16 08/12/18 Unknown Rx hydroCHLOROthiazide [HCTZ] 25 mg PO QDAY #30 tablet 08/02/16 08/12/18 Unknown Rx Aspirin 325 mg PO QDAY tablet 01/03/17 08/12/18 Unknown Rx Carvedilol [Coreg] 25 mg PO BID #60 tablet 01/03/17 08/12/18 Unknown Rx traMADol [Ultram 50 MG tab] 50 mg PO Q6HR PRN tablet 08/13/18 Unknown Rx ED Physical Exam - General Limitations: No Limitations General appearance: alert, in no apparent distress - Head Head exam: Present: atraumatic, normocephalic - Eye Eye exam: Present: normal appearance, PERRL, EOMI - ENT ENT exam: Present: mucous membranes moist - Neck Neck exam: Present: normal inspection - Respiratory Respiratory exam: Present: normal lung sounds bilaterally. Absent: respiratory distress, wheezes, rales, rhonchi - Cardiovascular Cardiovascular Exam: Present: regular rate, normal rhythm. Absent: systolic murmur, diastolic murmur, rubs, gallop - GI/Abdominal GI/Abdominal exam: Present: soft, normal bowel sounds. Absent: distended, tenderness, guarding, rebound, rigid - Extremities Exam Extremities exam: Present: normal inspection - Back Exam Back exam: Present: normal inspection - Neurological Exam Neurological exam: Present: alert, oriented X3 - Psychiatric Psychiatric exam: Present: normal affect, normal mood - Skin Skin exam: Present: warm, dry, intact, normal color. Absent: rash ED Course Vital Signs 06/02/19 06/02/19 06/02/19 01:56 04:00 04:15 Temperature 98.8 F 98.9 F Pulse Rate 75 75 75 Respiratory 16 18 Rate Blood Pressure 225/101 161/82 Blood Pressure 161/82 [Left] O2 Sat by Pulse 99 95 Oximetry TD score - Td Score Age > 65: (0) No Aspirin use within the Past 7 Days: (0) No 3 or more CAD Risk Factors: (1) Yes 2 or more Angina events in past 24 hrs: (1) Yes Known CAD with more than 50% Stenosis: (0) No Elevated Cardiac Markers: (0) No ST Deviation Greater than 0.5mm: (0) No TD Score: 2 ED Medical Decision Making - Lab Data Result diagrams: 06/02/19 02:46 06/02/19 02:46 Lab Results 06/02/19 06/02/19 Range/Units 02:46 02:46 WBC 5.0 (4.5-11.0) K/mm3 RBC 4.12 (3.65-5.03) M/mm3 Hgb 11.7 (10.1-14.3) gm/dl Hct 34.9 (30.3-42.9) % MCV 85 (79-97) fl MCH 28 (28-32) pg MCHC 34 (30-34) % RDW 16.7 H (13.2-15.2) % Plt Count 215 (140-440) K/mm3 Lymph % (Auto) 34.9 (13.4-35.0) % [place] % (Auto) 5.0 (0.0-7.3) % Eos % (Auto) 0.8 (0.0-4.3) % Baso % (Auto) 0.4 (0.0-1.8) % Lymph # 1.7 (1.2-5.4) K/mm3 [place] # 0.3 (0.0-0.8) K/mm3 Eos # 0.0 (0.0-0.4) K/mm3 Baso # 0.0 (0.0-0.1) K/mm3 Seg Neutrophils % 58.9 (40.0-70.0) % Seg Neutrophils # 2.9 (1.8-7.7) K/mm3 Sodium 141 (137-145) mmol/L Potassium 3.9 (3.6-5.0) mmol/L Chloride 100.8 (98-107) mmol/L Carbon Dioxide 31 H (22-30) mmol/L Anion Gap 13 mmol/L BUN 13 (7-17) mg/dL Creatinine 0.8 (0.7-1.2) mg/dL Estimated GFR > 60 ml/min BUN/Creatinine Ratio 16 % Glucose 115 H (65-100) mg/dL Calcium 9.7 (8.4-10.2) mg/dL Troponin T < 0.010 (0.00-0.029) ng/mL - EKG Data -: EKG Interpreted by Me EKG shows normal: sinus rhythm, axis, intervals, QRS complexes, ST-T waves Rate: normal - EKG Data Interpretation: normal EKG - Radiology Data Radiology results: report reviewed (CXR WNL) - Medical Decision Making Patient is a 54-year-old female with past medical history of hypertension diabetes and hypercholesterolemia who is presenting with chest discomfort. Patient blood pressure was very elevated on arrival. She did take her on clonidine which she did not take yesterday which did bring the pressure down to 160 systolic. Patient given nitroglycerin and aspirin. Patient has not had a cardiac workup in several years and the patient will be admitted for observation. Critical care attestation.: If time is entered above; I have spent that time in minutes in the direct care of this critically ill patient, excluding procedure time. ED Disposition Clinical Impression: Hypertensive urgency, Substernal chest pain, Noncompliance Disposition: 09 OP ADMIT IP TO THIS HOSP Is pt being admited?: Yes Does the pt Need Aspirin: No Condition: Stable Instructions: Chest Pain (ED) Time of Disposition: 04:33
[2019-06-02] MEDS ORDERED: MORPHINE IV PRN (05:04)
[2019-06-02] MEDS ORDERED: ZOFRAN IV PRN (05:04)
[2019-06-02] MEDS ORDERED: TYLENOL PO PRN (05:05)
[2019-06-02] MEDS ORDERED: D50W (25GM) Syringe IV PRN (05:19)
--- NOTE | 2019-06-02 05:52 | History and Physical Report ---
CHIEF COMPLAINT: Chest pain. Other complaint includes lower back pain and knee pain. HISTORY OF PRESENT ILLNESS: The patient is a 54-year-old female who said she has been having lower back pain and knee pain going on, but said the pain became severe in the last 24-48 hours. Also, the patient complaining about pressure-like chest pain in the retrosternal area going on for 2 days and associated with shortness of breath and diaphoresis. There is no history of nausea or vomiting. No history of cough or fever and the patient presented for evaluation in the Emergency Room, where she was found to have very high blood pressure, measuring about 225/101. PAST MEDICAL HISTORY: Pertinent for hypertension, diabetes mellitus. Also, the patient has past medical history of arthritis, obesity, gout, gallstone. PAST SURGICAL HISTORY: Pertinent for cholecystectomy, x 3 and negative Lexiscan stress test in 2017 in this hospital. FAMILY HISTORY: Reviewed and noncontributory. SOCIAL HISTORY: The patient does not smoke, does not drink alcohol and does not use illicit drugs. MEDICATIONS: The patient is on amlodipine 10 mg by mouth daily, clonidine 0.1 mg by mouth daily, hydrochlorothiazide 25 mg by mouth daily, aspirin 325 mg by mouth daily, Coreg or carvedilol 25 mg by mouth twice daily, Ultram or tramadol 50 mg by mouth every 6 hours as needed for pain. ALLERGIES: The patient is allergic to NARESH INHIBITORS. REVIEW OF SYSTEMS: CONSTITUTIONAL: There is no fever. There is no chills, but there is diaphoresis. HEENT: There is no headache or sore throat. CARDIOVASCULAR SYSTEM: Chest pain is present. No orthopnea. RESPIRATORY SYSTEM: Shortness of breath is present. There is no cough. GASTROINTESTINAL SYSTEM: There is no nausea, no vomiting, no abdominal pain, diarrhea or constipation. NEUROLOGICAL SYSTEM: There is no numbness, no dizziness, no altered mental status. MUSCULOSKELETAL SYSTEM: Low back pain noted. Knee pain noted. No joint swelling. DERMATOLOGICAL SYSTEM: There is no skin rash or itching. GENITOURINARY SYSTEM: There is no dysuria, hematuria, or flank pain. Rest of system review is normal. PHYSICAL EXAMINATION: GENERAL: At the time of exam, the patient was found to be alert, oriented x 3 and not in acute distress. VITAL SIGNS: At the initial time of presentation showed temperature of 98.8 degrees Fahrenheit, pulse of 75, respirations 16, blood pressure of 225/101, which later came down to 161/82 with treatment and O2 sat of 99% on room air. HEENT: Showed pupils to be equal, round, reactive to light and accommodating. Extraocular muscles are intact. NECK: Supple with no JVD or carotid bruits. CARDIOVASCULAR SYSTEM: Showed normal first and second heart sounds with no gallops or murmurs. RESPIRATORY SYSTEM: Showed good air entry on both sides of the lungs with no abnormal breath sounds. GASTROINTESTINAL SYSTEM: Show abdomen to be full, soft, nontender with no organomegaly or rigidity. NEUROLOGIC: Shows no focal deficit. MUSCULOSKELETAL SYSTEM: Show no joint swelling or tenderness. DERMATOLOGICAL SYSTEM: Show no skin rash. GENITOURINARY SYSTEM: Showing no costovertebral angle tenderness. PERTINENT LABORATORY AND IMAGING STUDIES: The patient had chest x-ray done that shows no acute findings. Also, the patient had lab test done with CBC coming back unremarkable. The patient's chemistry shows elevated CO2 of 31 with normal electrolytes. First troponin level came back normal. DIAGNOSES: 1. Chest pain. 2. Hypertensive crisis. 3. Low back and knee pain. 4. Diabetes mellitus. PLAN OF CARE: 1. The patient will be admitted to telemetry as inpatient. 2. The patient will have x-ray of the lower back and knee done this morning. 3. The patient will have cardiac enzymes involving troponin, total CK, and CK-MB checked every 6 hours x 2 more levels. 4. The patient will have Lexiscan stress test done on 06/03/2019 while being n.p.o. after midnight today. 5. The patient will be on IV hydralazine 10 mg every 4 hours for blood pressure of 150/90 or more. 6. The patient will be on aspirin 325 mg by mouth daily and will be on Tylenol 650 mg by mouth every 4 hours for fever and headache. 7. The patient will be on nitro paste half inch to anterior chest wall q.i.d. and will be on Nitrostat 0.4 mg sublingual every 5 minutes as needed for breakthrough chest pain. 8. The patient will be on morphine 2 mg IV every 3 hours as needed for chest pain and IV Zofran 4 mg every 8 hours as needed for nausea and vomiting. 9. The patient will be on heparin 5000 units subcutaneous q. 12 hours for DVT prophylaxis and will be on oxygen by nasal cannula at 2 liters per minute. 10. The patient will be on Accu-Chek before meals and at bedtime, followed by low-dose sliding scale using regular insulin coverage. JOB# [id number] OCN/NTS
[2019-06-02] MEDS: NITRO-BID 2% TP SCH ×4 (06:25→17:51)
--- NOTE | 2019-06-02 06:25 | XRay Report ---
BILATERAL KNEES 6 VIEWS TOTAL, 3 VIEWS EACH INDICATION / CLINICAL INFORMATION: ACUTE PAIN. COMPARISON: None available. FINDINGS: Right knee: Moderate tricompartmental degenerative arthrosis is seen within the right knee most prono unced within the medial femoral tibial compartment. No fracture, dislocation or right knee effusion i s present. Left knee: Advanced tricompartmental left knee degenerative arthrosis is present without visualized f racture, dislocation or knee effusion. Signer Name: Ron Christiansen MD Signed: 06/02/2019 6:21 AM Workstation Name: [id number]
--- NOTE | 2019-06-02 06:26 | XRay Report ---
LUMBAR SPINE 3 VIEWS INDICATION / CLINICAL INFORMATION: ACUTE PAIN. COMPARISON: None available. FINDINGS: VERTEBRAE: No fracture. No significant malalignment. DISC SPACES:Mild discogenic degenerative disease at T9-L5. FACET JOINTS:No significant abnormality. ADDITIONAL FINDINGS: None. IMPRESSION: 1. No significant abnormality. Signer Name: Ron Christiansen MD Signed: 06/02/2019 6:21 AM Workstation Name: [id number]
[2019-06-02 06:46] LABS: Creatine Kinase MB 2.1 ng/mL (0.0-4.0)
[2019-06-02] MEDS: HumuLIN R SUB-Q SCH ×3 (08:59→17:41)
[2019-06-02] MEDS: ASPIRIN PO SCH (10:56)
[2019-06-02] MEDS: APRESOLINE IV PRN ×2 (10:56→17:53)
[2019-06-02] MEDS: HEPARIN SUB-Q SCH ×2 (10:57→21:54)
--- NOTE | 2019-06-02 12:08 | Event Note ---
Date: 06/02/19 Patient seen and examined Admitted with Chest pain, monitor clinically with medical Mx, stress test tomorrow
[2019-06-02] MEDS: PROTONIX PO SCH (12:50)
[2019-06-02] MEDS: CATAPRES PO SCH (13:13)
[2019-06-02] MEDS: NORVASC PO SCH (13:13)
[2019-06-02] MEDS: HCTZ PO SCH (13:15)
[2019-06-02 13:51] LABS: Creatine Kinase MB 2.3 ng/mL (0.0-4.0)
[2019-06-02] MEDS: PERCOCET 5/325 PO PRN ×2 (14:26→21:55)
[2019-06-02] MEDS: COREG PO SCH (21:54)
[2019-06-02] MEDS: APRESOLINE PO SCH (21:54)
[2019-06-02] MEDS ORDERED: HumuLIN R SUB-Q SCH (22:00)
[2019-06-03] MEDS ORDERED: MORPHINE IV ONE (01:37)
[2019-06-03] MEDS: PERCOCET 5/325 PO PRN ×2 (05:08→13:57)
[2019-06-03] MEDS: NITRO-BID 2% TP SCH ×3 (05:12→13:49)
[2019-06-03] MEDS ORDERED: LEXISCAN IV ONE ×2 (08:08→09:00)
[2019-06-03] MEDS: HumuLIN R SUB-Q SCH ×2 (08:23→12:24)
[2019-06-03] MEDS ORDERED: NORVASC PO SCH (10:00)
[2019-06-03] MEDS ORDERED: ZYLOPRIM PO SCH (10:00)
[2019-06-03] MEDS ORDERED: HCTZ PO SCH (10:00)
[2019-06-03] MEDS ORDERED: CATAPRES PO SCH (10:00)
[2019-06-03] MEDS: COREG PO SCH (10:13)
[2019-06-03] MEDS: ASPIRIN PO SCH (10:13)
[2019-06-03] MEDS: CATAPRES PO SCH (10:14)
[2019-06-03] MEDS: NORVASC PO SCH (10:15)
[2019-06-03] MEDS: PROTONIX PO SCH (10:15)
[2019-06-03] MEDS: APRESOLINE PO SCH (10:15)
[2019-06-03] MEDS: HCTZ PO SCH (10:17)
[2019-06-03] MEDS: HEPARIN SUB-Q SCH (10:17)
--- NOTE | 2019-06-03 10:31 | Treadmill Report ---
NUCLEAR PERFUSION SCAN REFERRING PHYSICIAN: Hospitalist service. PROTOCOL: The patient was brought to the stress lab in a postoperative state, given 10 mCi of technetium 99m at rest. The patient underwent rest imaging. The patient underwent Lexiscan stress test. At peak stress, the patient was given 26 mCi of technetium 99m. Shortly thereafter, the patient underwent stress imaging. Interpretation of raw imaging reveals significant GI artifact large body habitus. Technically difficult study, grossly no evidence of a significant fixed or reversible defect in this technically difficult study. Gated wall motion reveals ejection fraction of approximately 55%. No TID. CONCLUSIONS: 1. Technically difficult study due to body habitus, but grossly no evidence of significant degree of ischemia or prior infarction. 2. Normal left ventricular systolic performance, estimated ejection fraction of 55% without TID. 3. Normal Lexiscan stress test without evidence of diagnostic ST changes, arrhythmias or chest pain during stress or recovery. [facility]# [id number] RAJAN/LUCILLE
[2019-06-03 12:07] VITALS: BP 135/72
--- NOTE | 2019-06-03 12:41 | Discharge Summary ---
Providers - Providers Date of Admission: 06/02/19 04:56 Date of discharge: 06/03/19 Attending physician: JOSELITO COLLAZO Primary care physician: DARRYL JOHNSON Hospitalization Condition: Stable Hospital course: This is a 54-year-old female with a history of morbid obesity, hypertension, diabetes mellitus type 2 on oral hypoglycemic medication presented to the hospital with complaints of chest pain and blood pressure of 225/101. Patient was evaluated in the ER, initial cardiac enzyme and EKG was unremarkable, chest x-ray showed no infiltrates. Patient was admitted and underwent myocardial stress test which was normal. High home blood pressure medications were resumed and adjusted. Patient was then discharged home in stable condition with outpatient follow-up. Discharge diagnosis: Atypical chest pain, likely from GERD Hypertensive Urgency Morbid obesity DM type 2 Chronic back and knee pain Disposition: TO HOME OR SELFCARE Time spent for discharge: 34 minutes Core Measure Documentation - Palliative Care Palliative Care/ Comfort Measures: Not Applicable - Core Measures Any of the following diagnoses?: none Exam - Constitutional Vitals: Temp Pulse Resp BP Pulse Ox 98.8 F 71 16 135/72 100 06/03/19 11:57 06/03/19 11:57 06/03/19 11:57 06/03/19 11:57 06/03/19 11:57 General appearance: Present: no acute distress, obese - EENT Eyes: Present: PERRL ENT: hearing intact, clear oral mucosa - Neck Neck: Present: supple, normal ROM - Respiratory Respiratory effort: normal Respiratory: bilateral: CTA - Cardiovascular Heart Sounds: Present: S1 & S2. Absent: rub, click - Extremities Extremities: pulses symmetrical, No edema Peripheral Pulses: within normal limits - Abdominal General gastrointestinal: Present: soft, non-tender, non-distended, normal bowel sounds - Integumentary Integumentary: Present: clear, warm, dry - Musculoskeletal Musculoskeletal: gait normal, strength equal bilaterally - Psychiatric Psychiatric: appropriate mood/affect, intact judgment & insight - Neurologic Neurologic: CNII-XII intact, moves all extremities Plan Activity: advance as tolerated Weight Bearing Status: Weight Bear as Tolerated Diet: low fat, low salt Special Instructions: record daily BP diary Follow up with: DARRYL JOHNSON MD, PHD [Primary Care Provider] - 7 Days Prescriptions: AtorvaSTATin [Lipitor] 40 mg PO QHS #30 tablet Aspirin EC [Halfprin EC] 81 mg PO QDAY #30 tablet. Pantoprazole [Protonix TAB] 40 mg PO QDAY #30 tablet
== END 2019-06-03 17:52 | disposition home or self-care (01) ==
LOC: SUATTDRO 01:39 → ED 01:39 → 4A 04:56 → INTOOBSV 04:56
PROVIDERS: ADMIT Internal Medicine; ATTEND Internal Medicine
DX: R07.89 Other chest pain (principal); I16.9 Hypertensive crisis, unspecified; I11.0 Hypertensive heart disease with heart failure; I50.9 Heart failure, unspecified; M54.5 Low back pain; E11.9 Type 2 diabetes mellitus without complications; M25.569 Pain in unspecified knee; M19.90 Unspecified osteoarthritis, unspecified site; Z79.82 Long term (current) use of aspirin
CPT/HCPCS: 36415; 71045; 72100; 73560; 78452; 80048; 82550; 82553; 82962; 84484; 85025; 93005; 93010; 93017; 94760; 96372; 96374; 96375; 96376; 99284; A9270; A9502; G0378; J0360; J1644; J2270; J2785

== ENCOUNTER 2019-07-07 00:59 | Emergency (ER) | payer OTHER ==
--- NOTE | 2019-07-07 02:03 | Emergency Department Report ---
ED General Adult HPI - General Chief complaint: Back Pain/Injury Stated complaint: BACK/BILATERAL KNEE/THIGH PAIN Time Seen by Provider: 07/07/19 01:54 Source: patient Mode of arrival: Ambulatory Limitations: No Limitations - History of Present Illness Initial comments: 54-year-old female with history of chronic back pain, knee pain, shoulder pain presents to ED with laceration of her pain over the last 3 days. Patient denies any new injuries. She denies any change in the character of her pain. Patient reports low back pain that radiates into bilateral legs. Reports history of arthritis. States she has not seen an orthopedic doctor recently. Patient reports she has taken tramadol and it is not helping. Patient has requested cortisone injection in her knees. -: days(s) (3) Location: back, left, right, lower extremity Severity scale (0 -10): 5 Quality: aching Consistency: intermittent Improves with: immobilization Worsens with: movement Associated Symptoms: denies other symptoms Treatments Prior to Arrival: other (tramadol) - Related Data Home Medications Medication Instructions Recorded Confirmed Last Taken Allopurinol [Zyloprim] 300 mg PO QDAY 06/02/19 06/02/19 Unknown Metformin HCl [metFORMIN] 1,000 mg PO BID 06/02/19 06/02/19 Unknown hydrALAZINE [Apresoline TAB] 25 mg PO BID 06/02/19 06/02/19 Unknown Previous Rx's Medication Instructions Recorded Last Taken Type amLODIPine [Norvasc] 10 mg PO DAILY #30 tablet 08/02/16 Unknown Rx cloNIDine [Catapres] 0.1 mg PO DAILY #30 tablet 08/02/16 Unknown Rx hydroCHLOROthiazide [HCTZ] 25 mg PO QDAY #30 tablet 08/02/16 Unknown Rx Carvedilol [Coreg] 25 mg PO BID #60 tablet 01/03/17 Unknown Rx traMADol [Ultram 50 MG tab] 50 mg PO Q6HR PRN tablet 08/13/18 Unknown Rx Aspirin EC [Halfprin EC] 81 mg PO QDAY #30 tablet.dr 06/03/19 Unknown Rx AtorvaSTATin [Lipitor] 40 mg PO QHS #30 tablet 06/03/19 Unknown Rx Pantoprazole [Protonix TAB] 40 mg PO QDAY #30 tablet 06/03/19 Unknown Rx Naproxen [Naprosyn] 500 mg PO BID #20 tablet 07/07/19 Unknown Rx predniSONE [Deltasone] 50 mg PO QDAY #5 tab 07/07/19 Unknown Rx Allergies Allergy/AdvReac Type Severity Reaction Status Date / Time NARESH Inhibitors Allergy Anaphylaxis Verified 05/30/14 01:03 ED Review of Systems ROS: Stated complaint: BACK/BILATERAL KNEE/THIGH PAIN Other details as noted in HPI Comment: All other systems reviewed and negative Constitutional: denies: chills, fever Musculoskeletal: as per HPI, back pain, arthralgia Neurological: denies: weakness, numbness, paresthesias ED Past Medical Hx - Past Medical History Previous Medical History?: Yes Hx Hypertension: Yes Hx Congestive Heart Failure: No Hx Diabetes: Yes Hx Arthritis: Yes Hx Asthma: No Hx COPD: No Additional medical history: Negative Lexiscan stress test December 2016. gout, Gallstones - Surgical History Past Surgical History?: Yes Hx Cholecystectomy: Yes Additional Surgical History: csection x 3 - Social History Smoking Status: Former Smoker Substance Use Type: None - Medications Home Medications: Home Medications Medication Instructions Recorded Confirmed Last Taken Type amLODIPine [Norvasc] 10 mg PO DAILY #30 tablet 08/02/16 06/02/19 Unknown Rx cloNIDine [Catapres] 0.1 mg PO DAILY #30 tablet 08/02/16 06/02/19 Unknown Rx hydroCHLOROthiazide [HCTZ] 25 mg PO QDAY #30 tablet 08/02/16 06/02/19 Unknown Rx Carvedilol [Coreg] 25 mg PO BID #60 tablet 01/03/17 06/02/19 Unknown Rx traMADol [Ultram 50 MG tab] 50 mg PO Q6HR PRN tablet 08/13/18 06/02/19 Unknown Rx Allopurinol [Zyloprim] 300 mg PO QDAY 06/02/19 06/02/19 Unknown History Metformin HCl [metFORMIN] 1,000 mg PO BID 06/02/19 06/02/19 Unknown History hydrALAZINE [Apresoline TAB] 25 mg PO BID 06/02/19 06/02/19 Unknown History Aspirin EC [Halfprin EC] 81 mg PO QDAY #30 tablet. 06/03/19 Unknown Rx AtorvaSTATin [Lipitor] 40 mg PO QHS #30 tablet 06/03/19 Unknown Rx Pantoprazole [Protonix TAB] 40 mg PO QDAY #30 tablet 06/03/19 Unknown Rx Naproxen [Naprosyn] 500 mg PO BID #20 tablet 07/07/19 Unknown Rx predniSONE [Deltasone] 50 mg PO QDAY #5 tab 07/07/19 Unknown Rx ED Physical Exam - General Limitations: No Limitations General appearance: alert, in no apparent distress, obese - Head Head exam: Present: atraumatic, normocephalic - Eye Eye exam: Present: normal appearance - ENT ENT exam: Present: mucous membranes moist - Neck Neck exam: Present: normal inspection - Respiratory Respiratory exam: Present: normal lung sounds bilaterally. Absent: respiratory distress - Cardiovascular Cardiovascular Exam: Present: regular rate, normal rhythm - GI/Abdominal GI/Abdominal exam: Absent: distended - Extremities Exam Extremities exam: Present: other (decreased ROM bilat knees secondary to pain, no swelling appreciated) - Back Exam Back exam: Present: normal inspection, paraspinal tenderness (bilat lower lumbar) - Neurological Exam Neurological exam: Present: alert, oriented X3. Absent: motor sensory deficit - Psychiatric Psychiatric exam: Present: normal affect, normal mood - Skin Skin exam: Present: warm, dry, intact, normal color ED Course Vital Signs 07/07/19 01:34 Temperature 98.3 F Pulse Rate 77 Respiratory 18 Rate Blood Pressure 167/137 [Left] O2 Sat by Pulse 99 Oximetry ED Medical Decision Making - Medical Decision Making Spoke with patient regarding weight management as a form of relief of her chronic back and knee pain. Patient advised follow-up with instructional design specialist. Return precautions given. - Differential Diagnosis arthritis, sciatica, DDD Critical care attestation.: If time is entered above; I have spent that time in minutes in the direct care of this critically ill patient, excluding procedure time. ED Disposition Clinical Impression: Chronic low back pain, Chronic pain of both knees, Chronic left shoulder pain Disposition: -01 TO HOME OR SELFCARE Is pt being admited?: No Condition: Stable Instructions: Weight Management (ED), Arthralgia (ED) Prescriptions: predniSONE [Deltasone] 50 mg PO QDAY #5 tab Naproxen [Naprosyn] 500 mg PO BID #20 tablet Referrals: MARCELINO ENRIQUEZ MD [Staff Physician] - 3-5 Days Time of Disposition: 02:03
[2019-07-07 02:34] VITALS: BP 156/99
== END 2019-07-07 03:02 | disposition home or self-care (01) ==
LOC: ED 00:59
DX: M54.5 Low back pain (principal); M25.561 Pain in right knee; M25.562 Pain in left knee; M25.512 Pain in left shoulder; G89.29 Other chronic pain; I10 Essential (primary) hypertension; Z90.49 Acquired absence of other specified parts of digestive tract; Z87.891 Personal history of nicotine dependence; Z79.899 Other long term (current) drug therapy; Z91.09 Other allergy status, other than to drugs and biological substances
CPT/HCPCS: 99282

== ENCOUNTER 2019-08-18 23:34 | Emergency (ER) | payer OTHER ==
[2019-08-19] MEDS ORDERED: ASPIRIN 325 MG TAB PO ONE (00:07)
--- NOTE | 2019-08-19 00:32 | XRay Report ---
CHEST 1 VIEW INDICATION: Chest Pain. COMPARISON: 06/02/2019. FINDINGS: Support devices: None. Heart: Stable mild cardiomegaly. Lungs/Pleura: Vascular congestion. No significant edema, infiltrate or pleural fluid. Additional findings: None. IMPRESSION: Mild vascular congestion. Signer Name: Bassam Castellon MD Signed: 08/19/2019 12:28 AM Workstation Name: [id number]
[2019-08-19 00:54] LABS: Basophils % (Auto) 0.4 % (0.0-1.8); Eosinophils % (Auto) 0.6 % (0.0-4.3); Hematocrit 35.5 % (30.3-42.9); Hemoglobin 11.6 gm/dl (10.1-14.3); Lymphocytes # (Auto) 1.9 K/mm3 (1.2-5.4); Lymphocytes % (Auto) 38.4 % (13.4-35.0); Mean Corpuscular HGB Conc 33 % (30-34); Mean Corpuscular Volume 84 fl (79-97); Monocytes # (Auto) 0.3 K/mm3 (0.0-0.8); Monocytes % (Auto) 6.7 % (0.0-7.3); Platelet Count 227 K/mm3 (140-440); Red Blood Count 4.24 M/mm3 (3.65-5.03); Red Cell Distribution Width 17.1 % (13.2-15.2)
[2019-08-19 01:19] LABS: BUN/Creatinine Ratio 14; Blood Urea Nitrogen 11 mg/dL (7-17); Calcium 9.1 mg/dL (8.4-10.2); Hemolysis Index 5
[2019-08-19] MEDS ORDERED: HYDROmorphone 1 MG/1 ML INJ IM ONE (02:10)
[2019-08-19] MEDS ORDERED: KETOROLAC 60 MG/2 ML INJ IM ONE (02:11)
[2019-08-19] MEDS ORDERED: dexAMETHasone 20 MG/5 ML VIAL IM ONE (02:11)
[2019-08-19] MEDS ORDERED: ONDANSETRON 4 MG ODT TAB PO ONE (02:11)
[2019-08-19] MEDS ORDERED: FAMOTIDINE 20 MG TAB PO ONE (02:13)
--- NOTE | 2019-08-19 03:03 | Emergency Department Report ---
ED Extremity Problem HPI - General Chief complaint: Arrhythmia/Palpitations Stated complaint: ARTHRITIS PAIN/PALPITATIONS Time Seen by Provider: 08/19/19 01:47 Source: patient Mode of arrival: Ambulatory Limitations: No Limitations - History of Present Illness Initial comments: 54 year old female with a past medical history of morbid obesity, arthritis, diabetes, gout, and hypertension presents to the hospital complaining of ongoing but worsening musculoskeletal pain. Patient complains of lower back pain and bilateral knee pain secondary to arthritis. Pain has been so bad the last week that she has missed several days at work. Her PMD Dr. Zamora in January and she just saw a new doctor last week. She prescribed prednisone, colchicine 0.6 mg 4 times a day, and Percocet 10/325 mg 90 tabs as per patient. Apparently the pharmacy only gave her 7 pills and told to come back to when she did they said that she would need a new prescription. She also stopped taking the prednisone because it caused her to gain weight. Also has not taken any of her Percocet today. She is requesting an injection in her knee. Previous medical record reviewed and patient was here July 07 with a similar complaint and similar request for a knee injection. Patient is unsure as to what type of arthritis she has. She denies fevers or recent trauma. Triage report complaint of palpitations 2 hours without cp the patient does not mention any palpitati ons during my evaluation. Severity scale (0 -10): 9 - Related Data Home Medications Medication Instructions Recorded Confirmed Last Taken Allopurinol [Zyloprim] 300 mg PO QDAY 06/02/19 06/02/19 Unknown Metformin HCl [metFORMIN] 1,000 mg PO BID 06/02/19 06/02/19 Unknown hydrALAZINE [Apresoline TAB] 25 mg PO BID 06/02/19 06/02/19 Unknown Previous Rx's Medication Instructions Recorded Last Taken Type amLODIPine 10 mg PO DAILY #30 tablet 08/02/16 Unknown Rx cloNIDine [Catapres] 0.1 mg PO DAILY #30 tablet 08/02/16 Unknown Rx hydroCHLOROthiazide [HCTZ] 25 mg PO QDAY #30 tablet 08/02/16 Unknown Rx carvediloL [Coreg] 25 mg PO BID #60 tablet 01/03/17 Unknown Rx traMADoL [Ultram 50 MG tab] 50 mg PO Q6HR PRN tablet 08/13/18 Unknown Rx Aspirin EC [Halfprin EC] 81 mg PO QDAY #30 tablet.dr 06/03/19 Unknown Rx AtorvaSTATin [Lipitor] 40 mg PO QHS #30 tablet 06/03/19 Unknown Rx Pantoprazole [Protonix TAB] 40 mg PO QDAY #30 tablet 06/03/19 Unknown Rx predniSONE [Deltasone] 50 mg PO QDAY #5 tab 07/07/19 Unknown Rx Naproxen [Naprosyn TAB] 500 mg PO BID #20 tablet 08/19/19 Unknown Rx Oxycodone HCl/Acetaminophen 1 each PO Q6HR PRN #20 tablet 08/19/19 Unknown Rx [Percocet 10/325 mg] Allergies Allergy/AdvReac Type Severity Reaction Status Date / Time NARESH Inhibitors Allergy Anaphylaxis Verified 05/30/14 01:03 ED Review of Systems ROS: Stated complaint: ARTHRITIS PAIN/PALPITATIONS Other details as noted in HPI Comment: All other systems reviewed and negative ED Past Medical Hx - Past Medical History Previous Medical History?: Yes Hx Hypertension: Yes Hx Congestive Heart Failure: No Hx Diabetes: Yes Hx Arthritis: Yes Hx Asthma: No Hx COPD: No Additional medical history: Negative Lexiscan stress test December 2016. gout, Gallstones, Chronic back Pain - Surgical History Past Surgical History?: Yes Hx Cholecystectomy: Yes Additional Surgical History: csection x 3 - Social History Smoking Status: Never Smoker Substance Use Type: None - Medications Home Medications: Home Medications Medication Instructions Recorded Confirmed Last Taken Type amLODIPine 10 mg PO DAILY #30 tablet 08/02/16 06/02/19 Unknown Rx cloNIDine [Catapres] 0.1 mg PO DAILY #30 tablet 08/02/16 06/02/19 Unknown Rx hydroCHLOROthiazide [HCTZ] 25 mg PO QDAY #30 tablet 08/02/16 06/02/19 Unknown Rx carvediloL [Coreg] 25 mg PO BID #60 tablet 01/03/17 06/02/19 Unknown Rx traMADoL [Ultram 50 MG tab] 50 mg PO Q6HR PRN tablet 08/13/18 06/02/19 Unknown Rx Allopurinol [Zyloprim] 300 mg PO QDAY 06/02/19 06/02/19 Unknown History Metformin HCl [metFORMIN] 1,000 mg PO BID 06/02/19 06/02/19 Unknown History hydrALAZINE [Apresoline TAB] 25 mg PO BID 06/02/19 06/02/19 Unknown History Aspirin EC [Halfprin EC] 81 mg PO QDAY #30 tablet. 06/03/19 Unknown Rx AtorvaSTATin [Lipitor] 40 mg PO QHS #30 tablet 06/03/19 Unknown Rx Pantoprazole [Protonix TAB] 40 mg PO QDAY #30 tablet 06/03/19 Unknown Rx predniSONE [Deltasone] 50 mg PO QDAY #5 tab 07/07/19 Unknown Rx Naproxen [Naprosyn TAB] 500 mg PO BID #20 tablet 08/19/19 Unknown Rx Oxycodone HCl/Acetaminophen 1 each PO Q6HR PRN #20 tablet 08/19/19 Unknown Rx [Percocet 10/325 mg] ED Physical Exam - General Limitations: No Limitations - Other Other exam information: General: No acute distress Head: Atraumatic Eyes: normal appearance ENT: Moist mucous membranes Neck: Normal appearance, no midline tenderness Chest: Clear to auscultation bilaterally CV: Regular rate and rhythm Abdomen: Soft, normal bowel sounds, nontender, nondistended, no rebound or guarding Back: Normal inspection, no midline tenderness Extremity: Normal inspection infection, tenderness to b/l knees without deformity and full range of motion Neuro: Alert O x 3, no facial asymmetry, speech clear, no gross motor sensory deficit Psych: Appropriate behavior Skin: No rash ED Course Vital Signs 08/18/19 23:39 Temperature 98.4 F Pulse Rate 75 Respiratory 18 Rate Blood Pressure 196/93 O2 Sat by Pulse 99 Oximetry - Reevaluation(s) Reevaluation #1: 08/19/19 03:43 pain improved with ed tx ED Medical Decision Making - Lab Data Result diagrams: 08/19/19 00:26 08/19/19 00:26 Lab Results 08/19/19 08/19/19 Range/Units 00:26 00:26 WBC 4.9 (4.5-11.0) K/mm3 RBC 4.24 (3.65-5.03) M/mm3 Hgb 11.6 (10.1-14.3) gm/dl Hct 35.5 (30.3-42.9) % MCV 84 (79-97) fl MCH 27 L (28-32) pg MCHC 33 (30-34) % RDW 17.1 H (13.2-15.2) % Plt Count 227 (140-440) K/mm3 Lymph % (Auto) 38.4 H (13.4-35.0) % [place] % (Auto) 6.7 (0.0-7.3) % Eos % (Auto) 0.6 (0.0-4.3) % Baso % (Auto) 0.4 (0.0-1.8) % Lymph # 1.9 (1.2-5.4) K/mm3 [place] # 0.3 (0.0-0.8) K/mm3 Eos # 0.0 (0.0-0.4) K/mm3 Baso # 0.0 (0.0-0.1) K/mm3 Seg Neutrophils % 53.9 (40.0-70.0) % Seg Neutrophils # 2.6 (1.8-7.7) K/mm3 Carbon Dioxide 26 (22-30) mmol/L BUN 11 (7-17) mg/dL Creatinine 0.8 (0.7-1.2) mg/dL Estimated GFR > 60 ml/min BUN/Creatinine Ratio 14 % Glucose 129 H (65-100) mg/dL Calcium 9.1 (8.4-10.2) mg/dL Troponin T < 0.010 (0.00-0.029) ng/mL as per verbal from lab: sodium 141, potassium 3.5, chloride 103, ag 15 - EKG Data -: EKG Interpreted by [place] EKG shows normal: sinus rhythm, ST-T waves (no stemi) Rate: normal (74) - Radiology Data Radiology results: report reviewed CHEST 1 VIEW INDICATION: Chest Pain. COMPARISON: 06/02/2019. FINDINGS: Support devices: None. Heart: Stable mild cardiomegaly. Lungs/Pleura: Vascular congestion. No significant edema, infiltrate or pleural fluid. Additional findings: None. IMPRESSION: Mild vascular congestion. - Medical Decision Making [place] prescription monitoring site reviewed. Patient has been on tramadol chronically prescribed by her previous physician last filled in June. Her recent Percocet prescription is not on the site. He has been prescribed Percocet, colchicine, and prednisone. She is noncompliant with prednisone because she does not like side effects but states it does help with her pain. She also was unable to get the 90 tablets of Percocet that were prescribed to her as per patient. Pharmacy now refuses to fill the rest of the tablets since they were partially filled the prescription. These symptoms ongoing and chronic. Feel this patient would benefit from house painter helper or r heumatologist/orthopedic evaluation. She received IM Dilaudid, Toradol, Decadron, and by mouth Zofran and Pepcid while in the ED with improvement in pain. - Differential Diagnosis arthritis, chronic pain Critical Care Time: No Critical care attestation.: If time is entered above; I have spent that time in minutes in the direct care of this critically ill patient, excluding procedure time. ED Disposition Clinical Impression: Chronic pain, Bilateral knee pain, Lower back pain, Arthritis Disposition: TO HOME OR SELFCARE Is pt being admited?: No Does the pt Need Aspirin: No Condition: Stable Instructions: Arthralgia (ED), Knee Pain (ED), Chronic Pain (ED), Osteoarthritis (ED) Additional Instructions: Take the medication as prescribed. Follow-up with your doctor or doctor/clinic provided. Return if symptoms worsen as indicated by your discharge instructions. I encouraged you to take your prescribed prednisone it it helps with your pain. Make sure you also take your stomach acid medication. Taking both prednisone and Naprosyn/Motrin/ibuprofen may increase your risk of stomach ulcer. Prescriptions: Naproxen [Naprosyn TAB] 500 mg PO BID #20 tablet Oxycodone HCl/Acetaminophen [Percocet 10/325 mg] 1 each PO Q6HR PRN #20 tablet PRN Reason: Pain Referrals: PRIMARY CARE, [Primary Care Provider] - 3-5 Days GUSTAVO LOMAX MD [Referring] - 3-5 Days (rheumatology) MARYLOU MUNOZ MD [Staff Physician] - 3-5 Days (Apartment Maintenance Manager) MARCELINO ENRIQUEZ MD [Staff Physician] - 3-5 Days (Orthopedic surgeon) THI LEE MD [Staff Physician] - 3-5 Days (Primary care doctor) FAITH CUNHA MD [Staff Physician] - 3-5 Days (primary care doctor) Time of Disposition: 03:48
[2019-08-19 04:46] VITALS: BP 130/88
== END 2019-08-19 04:47 | disposition home or self-care (01) ==
LOC: ED 23:34
DX: M17.0 Bilateral primary osteoarthritis of knee (principal); M54.5 Low back pain; I10 Essential (primary) hypertension; E11.9 Type 2 diabetes mellitus without complications; Z90.49 Acquired absence of other specified parts of digestive tract; Z79.899 Other long term (current) drug therapy; Z88.8 Allergy status to other drugs, medicaments and biological substances
CPT/HCPCS: 36415; 71045; 80048; 84484; 85025; 93005; 93010; 96372; 99284; J1100; J1170; J1885; Q0162

== ENCOUNTER 2019-10-04 16:44 | Emergency (ER) | payer OTHER ==
[2019-10-04] MEDS ORDERED: ASPIRIN 325 MG TAB PO ONE (17:49)
--- NOTE | 2019-10-04 18:35 | XRay Report ---
CHEST 2 VIEWS INDICATION: Chest Pain. COMPARISON: 08/19/2019. FINDINGS: Support devices: None. Heart: Within normal limits. Lungs/Pleura: No acute air space or interstitial disease. No significant pleural effusion. IMPRESSION: No acute findings. Signer Name: Bassam Castellon MD Signed: 10/04/2019 6:26 PM Workstation Name: [id number]
[2019-10-04 20:19] LABS: Basophils % (Auto) 0.5 % (0.0-1.8); Eosinophils % (Auto) 1.3 % (0.0-4.3); Hematocrit 41.4 % (30.3-42.9); Hemoglobin 13.3 gm/dl (10.1-14.3); Lymphocytes % (Auto) 35.3 % (13.4-35.0); Mean Corpuscular HGB Conc 32 % (30-34); Mean Corpuscular Volume 84 fl (79-97); Monocytes # (Auto) 0.4 K/mm3 (0.0-0.8); Monocytes % (Auto) 12.8 % (0.0-7.3); Platelet Count 190 K/mm3 (140-440); Red Blood Count 4.92 M/mm3 (3.65-5.03); Red Cell Distribution Width 17.8 % (13.2-15.2)
[2019-10-04 20:39] LABS: BUN/Creatinine Ratio 14; Blood Urea Nitrogen 11 mg/dL (7-17); Calcium 9.8 mg/dL (8.4-10.2)
[2019-10-04] MEDS ORDERED: ACETAMINOPHEN 325 MG TAB PO ONE (22:15)
[2019-10-04] MEDS ORDERED: IBUPROFEN 600 MG TAB PO ONE (22:15)
--- NOTE | 2019-10-04 22:19 | Emergency Department Report ---
ED General Adult HPI - General Chief complaint: Chest Pain Stated complaint: CHEST PAIN/COUGH Time Seen by Provider: 10/04/19 21:38 Source: patient, RN notes reviewed, old records reviewed Mode of arrival: Ambulatory Limitations: No Limitations - History of Present Illness Initial comments: PMD: Dr Haim Zarco The patient is a 54-year-old female, she has a history of morbid obesity, arthritis, hypertension, diabetes. The patient had a negative cardiac nuclear stress test at this hospital in June 2019, August 2018, and had a CT scan of the chest in 2016, negative for pulmonary embolism and aortic dissection. Today, the patient presents to the ER with a complaint of nontraumatic lumbar back pain, which does not radiate anywhere, nontraumatic bilateral aching knee pain, consistent with prior episode of arthritis, cough, clear yellow mucus, and chest wall pain. There is no vomiting, diaphoresis, the patient denies chest wall pain radiation. The patient denies recent travel, surgery and immobility. She has chronic shortness of breath, which is not a new, worsening or different. She sleeps poorly at night chronically, does not have a history of sleep apnea but she is aware of. -: Gradual Location: back, left, right, lower extremity Quality: aching Consistency: intermittent Worsens with: movement, rest - Related Data Home Medications Medication Instructions Recorded Confirmed Last Taken Metformin HCl [metFORMIN] 1,000 mg PO BID 06/02/19 06/02/19 Unknown allopurinoL [Zyloprim] 300 mg PO QDAY 06/02/19 06/02/19 Unknown hydrALAZINE [Apresoline TAB] 25 mg PO BID 06/02/19 06/02/19 Unknown Previous Rx's Medication Instructions Recorded Last Taken Type amLODIPine 10 mg PO DAILY #30 tablet 08/02/16 Unknown Rx cloNIDine [Catapres] 0.1 mg PO DAILY #30 tablet 08/02/16 Unknown Rx hydroCHLOROthiazide [HCTZ] 25 mg PO QDAY #30 tablet 08/02/16 Unknown Rx carvediloL [Coreg] 25 mg PO BID #60 tablet 01/03/17 Unknown Rx traMADoL [Ultram 50 MG tab] 50 mg PO Q6HR PRN tablet 08/13/18 Unknown Rx Aspirin EC [Halfprin EC] 81 mg PO QDAY #30 tablet. 06/03/19 Unknown Rx AtorvaSTATin [Lipitor] 40 mg PO QHS #30 tablet 06/03/19 Unknown Rx Pantoprazole [Protonix TAB] 40 mg PO QDAY #30 tablet 06/03/19 Unknown Rx predniSONE [Deltasone] 50 mg PO QDAY #5 tab 07/07/19 Unknown Rx Naproxen [Naprosyn TAB] 500 mg PO BID #20 tablet 08/19/19 Unknown Rx Oxycodone HCl/Acetaminophen 1 each PO Q6HR PRN #20 tablet 08/19/19 Unknown Rx [Percocet 10/325 mg] Acetaminophen [Non-Aspirin Extra 500 mg PO Q6HR PRN #30 tablet 10/04/19 Unknown Rx Strength] Albuterol Sulfate [Proair 90 mcg IH Q4HR PRN #2 aer.pow.ba 10/04/19 Unknown Rx Respiclick] Ibuprofen [Motrin] 600 mg PO Q8H PRN #30 tablet 10/04/19 Unknown Rx Allergies Allergy/AdvReac Type Severity Reaction Status Date / Time NARESH Inhibitors Allergy Anaphylaxis Verified 05/30/14 01:03 ED Review of Systems ROS: Stated complaint: CHEST PAIN/COUGH Other details as noted in HPI Constitutional: denies: fever Eyes: denies: eye discharge ENT: congestion Respiratory: cough Cardiovascular: chest pain. denies: syncope Gastrointestinal: denies: vomiting Genitourinary: denies: dysuria Musculoskeletal: back pain, arthralgia, myalgia Skin: denies: lesions Neurological: denies: confusion Hematological/Lymphatic: denies: easy bleeding ED Past Medical Hx - Past Medical History Previous Medical History?: Yes Hx Hypertension: Yes Hx Congestive Heart Failure: No Hx Diabetes: Yes Hx Arthritis: Yes (rheumatoid) Hx Asthma: No Hx COPD: No Additional medical history: Negative Lexiscan stress test December 2016. gout, Gallstones, Chronic back Pain - Surgical History Past Surgical History?: Yes Hx Cholecystectomy: Yes Additional Surgical History: csection x 3 - Social History Smoking Status: Never Smoker Substance Use Type: None - Medications Home Medications: Home Medications Medication Instructions Recorded Confirmed Last Taken Type amLODIPine 10 mg PO DAILY #30 tablet 08/02/16 06/02/19 Unknown Rx cloNIDine [Catapres] 0.1 mg PO DAILY #30 tablet 08/02/16 06/02/19 Unknown Rx hydroCHLOROthiazide [HCTZ] 25 mg PO QDAY #30 tablet 08/02/16 06/02/19 Unknown Rx carvediloL [Coreg] 25 mg PO BID #60 tablet 01/03/17 06/02/19 Unknown Rx traMADoL [Ultram 50 MG tab] 50 mg PO Q6HR PRN tablet 08/13/18 06/02/19 Unknown Rx Metformin HCl [metFORMIN] 1,000 mg PO BID 06/02/19 06/02/19 Unknown History allopurinoL [Zyloprim] 300 mg PO QDAY 06/02/19 06/02/19 Unknown History hydrALAZINE [Apresoline TAB] 25 mg PO BID 06/02/19 06/02/19 Unknown History Aspirin EC [Halfprin EC] 81 mg PO QDAY #30 tablet.dr 06/03/19 Unknown Rx AtorvaSTATin [Lipitor] 40 mg PO QHS #30 tablet 06/03/19 Unknown Rx Pantoprazole [Protonix TAB] 40 mg PO QDAY #30 tablet 06/03/19 Unknown Rx predniSONE [Deltasone] 50 mg PO QDAY #5 tab 07/07/19 Unknown Rx Naproxen [Naprosyn TAB] 500 mg PO BID #20 tablet 08/19/19 Unknown Rx Oxycodone HCl/Acetaminophen 1 each PO Q6HR PRN #20 tablet 08/19/19 Unknown Rx [Percocet 10/325 mg] Acetaminophen [Non-Aspirin Extra 500 mg PO Q6HR PRN #30 tablet 10/04/19 Unknown Rx Strength] Albuterol Sulfate [Proair 90 mcg IH Q4HR PRN #2 aer.pow.ba 10/04/19 Unknown Rx Respiclick] Ibuprofen [Motrin] 600 mg PO Q8H PRN #30 tablet 10/04/19 Unknown Rx ED Physical Exam - General Limitations: No Limitations, Other (chaperoned by JAYDEN Mckinley) General appearance: alert, in no apparent distress, obese - Head Head exam: Present: atraumatic, normocephalic - Eye Eye exam: Present: normal appearance - ENT ENT exam: Present: normal exam, normal orophraynx, mucous membranes moist, normal external ear exam - Neck Neck exam: Present: normal inspection, full ROM. Absent: tenderness, meningismus - Respiratory Respiratory exam: Present: normal lung sounds bilaterally, chest wall tenderness, other (there is no breast redness,'s pus, streaking or tenderness. Chaperoned by nurse Mary Mckinley, there is reproducible chest wall tenderness). Absent: respiratory distress, wheezes, rales, rhonchi, stridor - Cardiovascular Cardiovascular Exam: Present: regular rate, normal rhythm, normal heart sounds. Absent: bradycardia, tachycardia, irregular rhythm, systolic murmur, diastolic murmur, rubs, gallop - GI/Abdominal GI/Abdominal exam: Present: soft. Absent: distended, tenderness, guarding, rebound, rigid, pulsatile mass - Extremities Exam Extremities exam: Present: normal inspection, full ROM, other (2+ pulses noted in the bilateral upper and lower extremities. The pelvis is stable. There is no long bony tenderness. The muscular compartments are soft. There is no redness, pus, streaking or erythema.). Absent: pedal edema, calf tenderness - Back Exam Back exam: Present: normal inspection, full ROM, paraspinal tenderness. Absent: tenderness, CVA tenderness (R), vertebral tenderness - Neurological Exam Neurological exam: Present: alert, oriented X3, normal gait, other (there is no facial droop. The tongue is midline. Extraocular movements are intact bilaterally. Speaking in full sentences. Hearing is grossly intact. 5 out of 5 strength bilateral upper and lower extremities. Sensation is intact to light touch bilateral upper and lower extremities.). Absent: motor sensory deficit - Psychiatric Psychiatric exam: Present: normal affect, normal mood - Skin Skin exam: Present: warm, dry, intact, normal color. Absent: rash ED Course Vital Signs 10/04/19 10/04/19 10/04/19 22:13 22:42 23:18 Temperature 98.4 F Pulse Rate 89 Respiratory 20 20 Rate Blood Pressure 181/79 [Left] O2 Sat by Pulse 98 Oximetry - Reevaluation(s) Reevaluation #1: 10/04/19 23:16 Hypertension is reviewed and appreciated. Please referencing [employer] clinical policy and hypertension which is not acutely symptomatic. Patient has a history of chronic hypertension. Temperature in triage was 98.4. ED Medical Decision Making - Lab Data Result diagrams: 10/04/19 20:04 10/04/19 20:04 Vital Signs 10/04/19 22:13 Respiratory 20 Rate Lab Results 10/04/19 10/04/19 10/04/19 Range/Units 20:04 20:04 20:04 WBC 2.8 L (4.5-11.0) K/mm3 RBC 4.92 (3.65-5.03) M/mm3 Hgb 13.3 (10.1-14.3) gm/dl Hct 41.4 (30.3-42.9) % MCV 84 (79-97) fl MCH 27 L (28-32) pg MCHC 32 (30-34) % RDW 17.8 H (13.2-15.2) % Plt Count 190 (140-440) K/mm3 Lymph % (Auto) 35.3 H (13.4-35.0) % [place] % (Auto) 12.8 H (0.0-7.3) % Eos % (Auto) 1.3 (0.0-4.3) % Baso % (Auto) 0.5 (0.0-1.8) % Lymph # 1.0 L (1.2-5.4) K/mm3 [place] # 0.4 (0.0-0.8) K/mm3 Eos # 0.0 (0.0-0.4) K/mm3 Baso # 0.0 (0.0-0.1) K/mm3 Seg Neutrophils % 50.1 (40.0-70.0) % Seg Neutrophils # 1.4 L (1.8-7.7) K/mm3 Sodium 141 (137-145) mmol/L Potassium 3.8 (3.6-5.0) mmol/L Chloride 101.2 (98-107) mmol/L Carbon Dioxide 27 (22-30) mmol/L Anion Gap 17 mmol/L BUN 11 (7-17) mg/dL Creatinine 0.8 (0.7-1.2) mg/dL Estimated GFR > 60 ml/min BUN/Creatinine Ratio 14 % Glucose 93 (65-100) mg/dL Calcium 9.8 (8.4-10.2) mg/dL Troponin T < 0.010 < 0.010 (0.00-0.029) ng/mL - EKG Data -: EKG Interpreted by Nm EKG shows normal: sinus rhythm Rate: normal - EKG Data 10/04/19 22:39 EKG #1 is limited by motion artifact. This is a sinus rhythm, there is a borderline leftward axis deviation, there is a prolonged WA interval, there is a left anterior fascicular block, there is motion artifact. There is left ventricular hypertrophy. This is not a STEMI. EKG #2 was unchanged from prior. Neither EKG consistent with ST elevation myocardial infarction. Grossly unchanged from prior EKG, from August 2019, with the exception of negatively deflected QRS complex in aVF. - Radiology Data Radiology results: report reviewed interpreted by me: X-ray of the chest, negative for acute disease, interpreted by radiology. - Medical Decision Making Differential diagnosis, including but not limited to: Arthritis, obesity, costochondritis, bronchitis, pneumonia Assessment and plan: 54-year-old female with complaint of musculoskeletal lower back pain, reproducible, bilateral knee pain, moving 4 extremities, neurovascularly intact, walking with a steady gait, exam and history not consistent with epidural compression syndrome, or infectious arthritis. Most likely has arthritis secondary to morbid obesity. Also endorsing cough and chest wall pain. Recently had a negative cardiac stress test at this hospital. Troponin negative 2. Not tachycardic, tachypneic or hypoxic. May be a component of bronchitis. Extensive discussion held with patient regarding need for weight loss, lifestyle modifications. Upon multiple re-evaluations, patient resting comfortably in her stretcher in her room, speaking and playing on her cellular phone. Critical care attestation.: If time is entered above; I have spent that time in minutes in the direct care of this critically ill patient, excluding procedure time. ED Disposition Clinical Impression: Arthralgia, Chest wall pain, Bronchitis Disposition: DC-01 TO HOME OR SELFCARE Is pt being admited?: No Does the pt Need Aspirin: No Condition: Stable Instructions: Chest Pain (ED), Chronic Bronchitis (ED) Additional Instructions: Rest, avoid heavy lifting, and avoid strenuous physical activities. Continue current outpatient medications. Patient may alternate prescribed pain medications as needed for bilateral knee pain, and lower back pain. Use the albuterol medication as needed for cough and/or shortness of breath. Recommend patient participate in physical activities as tolerated, exercise as tolerated, and attempt weight loss. Recommend patient follow up with her primary care doctor or scalder for her cough, chest wall pain within the next 5-7 days. Recommend patient follow up with a sleep specialist within the next month, such as Dr. Chu, to evaluate for possible sleep apnea. Please return to the emergency room right away with projectile vomiting, change in mental status, confusion, inability to tolerate liquid feeds, new, worsening or different symptoms not present on the initial emergency room evaluation. Prescriptions: Ibuprofen [Motrin] 600 mg PO Q8H PRN #30 tablet PRN Reason: Pain Acetaminophen [Non-Aspirin Extra Strength] 500 mg PO Q6HR PRN #30 tablet PRN Reason: Pain , Severe (7-10) Albuterol Sulfate [Proair Respiclick] 90 mcg IH Q4HR PRN #2 aer.pow.ba PRN Reason: Wheezing Referrals: FAITH ZARCO MD [Staff Physician] - 3-5 Days [facility] [Provider Group] - 3-5 Days [facility] [Provider Group] - 3-5 Days VIMAL CHU MD [Staff Physician] - as needed (for sleep medicine evaluation)
[2019-10-04 22:52] VITALS: BP 181/79
[2019-10-05 05:20] LABS: Hemolysis Index 24
== END 2019-10-04 23:51 | disposition home or self-care (01) ==
LOC: ED 16:44
DX: J40 Bronchitis, not specified as acute or chronic (principal); I10 Essential (primary) hypertension; E11.9 Type 2 diabetes mellitus without complications; M06.9 Rheumatoid arthritis, unspecified
CPT/HCPCS: 36415; 71046; 80048; 84484; 85025; 93005; 93010; 99284

== ENCOUNTER 2019-10-11 10:06 | Outpatient (CLI) | payer OTHER ==
[2019-10-15 12:03] LABS: ANA Screen, IFA Negative (Negative)
== END 2019-10-11 10:07 | disposition home or self-care (01) ==
LOC: LAB 10:06
PROVIDERS: ATTEND Internal Medicine
DX: M13.0 Polyarthritis, unspecified (principal)
CPT/HCPCS: 36415; 85652; 86038; 86140; 86431

== ENCOUNTER 2020-04-06 18:49 | Emergency (ER) | payer OTHER ==
[2020-04-07] MEDS ORDERED: MORPHINE 2 MG/1 ML INJ IV ONE (02:22)
[2020-04-07] MEDS ORDERED: KETOROLAC 30 MG/1 ML INJ IV ONE (02:22)
--- NOTE | 2020-04-07 02:26 | Emergency Department Report ---
ED General Adult HPI - General Chief complaint: Pain General Stated complaint: BODY PAIN/SOB/FEVER/ Time Seen by Provider: 04/07/20 02:00 Source: patient Mode of arrival: Ambulatory Limitations: No Limitations - History of Present Illness Initial comments: 55-year-old female with history of hypertension, arthritis, chronic knee and back pain, presents to ED with exacerbation of her pain. Patient states 2 weeks ago she began having worsening pain in bilateral knees and back. She states 4 days ago she began having bilateral shoulder pain. Patient states her top edge beveler has her taking prednisone, however she does not like it because she has gained approximately 80 pounds in the last 4 months. Patient reports feeling feverish at night. Patient states she feels a little short of breath when she lays on her right side. She denies any recent fall or trauma. Patient denies cough, vomiting or diarrhea, abdominal pain, sore throat, loss of smell or taste, or exposure to anyone who has tested positive for COVID-19. -: week(s) (2) Location: back, left, right, upper extremity, lower extremity Severity scale (0 -10): 8 Quality: aching Consistency: constant Improves with: none Associated Symptoms: fever/chills, shortness of breath. denies: nausea/vomiting Treatments Prior to Arrival: other (colchicine) - Related Data Home Medications Medication Instructions Recorded Confirmed Last Taken Metformin HCl [metFORMIN] 1,000 mg PO BID 06/02/19 06/02/19 Unknown allopurinoL [Zyloprim] 300 mg PO QDAY 06/02/19 06/02/19 Unknown hydrALAZINE [Apresoline TAB] 25 mg PO BID 06/02/19 06/02/19 Unknown Previous Rx's Medication Instructions Recorded Last Taken Type amLODIPine 10 mg PO DAILY #30 tablet 08/02/16 Unknown Rx cloNIDine [Catapres] 0.1 mg PO DAILY #30 tablet 08/02/16 Unknown Rx hydroCHLOROthiazide [HCTZ] 25 mg PO QDAY #30 tablet 08/02/16 Unknown Rx carvediloL [Coreg] 25 mg PO BID #60 tablet 01/03/17 Unknown Rx traMADoL [Ultram 50 MG tab] 50 mg PO Q6HR PRN tablet 08/13/18 Unknown Rx Aspirin EC [Halfprin EC] 81 mg PO QDAY #30 06/03/19 Unknown Rx AtorvaSTATin [Lipitor] 40 mg PO QHS #30 tablet 06/03/19 Unknown Rx Pantoprazole [Protonix TAB] 40 mg PO QDAY #30 tablet 06/03/19 Unknown Rx predniSONE [Deltasone] 50 mg PO QDAY #5 tab 07/07/19 Unknown Rx Naproxen [Naprosyn TAB] 500 mg PO BID #20 tablet 08/19/19 Unknown Rx Oxycodone HCl/Acetaminophen 1 each PO Q6HR PRN #20 tablet 08/19/19 Unknown Rx [Percocet 10/325 mg] Acetaminophen [Non-Aspirin Extra 500 mg PO Q6HR PRN #30 tablet 10/04/19 Unknown Rx Strength] Albuterol Sulfate [Proair 90 mcg IH Q4HR PRN #2 aer.pow.ba 10/04/19 Unknown Rx Respiclick] Ibuprofen [Motrin] 600 mg PO Q8H PRN #30 tablet 10/04/19 Unknown Rx HYDROcodone/APAP 5-325 [[place] 1 each PO Q6HR PRN #7 tablet 04/07/20 Unknown Rx 5/325] Allergies Allergy/AdvReac Type Severity Reaction Status Date / Time NARESH Inhibitors Allergy Anaphylaxis Verified 05/30/14 01:03 ED Review of Systems ROS: Stated complaint: BODY PAIN/SOB/FEVER/ Other details as noted in HPI Comment: All other systems reviewed and negative Constitutional: fever Respiratory: shortness of breath. denies: cough Gastrointestinal: denies: abdominal pain, vomiting, diarrhea Musculoskeletal: as per HPI, back pain, arthralgia ED Past Medical Hx - Past Medical History Previous Medical History?: Yes Hx Hypertension: Yes Hx Congestive Heart Failure: No Hx Diabetes: Yes Hx Arthritis: Yes (rheumatoid) Hx Asthma: No Hx COPD: No Additional medical history: Negative Lexiscan stress test December 2016. gout, Gallstones, Chronic back Pain - Surgical History Hx Cholecystectomy: Yes Additional Surgical History: csection x 3 - Social History Smoking Status: Never Smoker Substance Use Type: None - Medications Home Medications: Home Medications Medication Instructions Recorded Confirmed Last Taken Type amLODIPine 10 mg PO DAILY #30 tablet 08/02/16 06/02/19 Unknown Rx cloNIDine [Catapres] 0.1 mg PO DAILY #30 tablet 08/02/16 06/02/19 Unknown Rx hydroCHLOROthiazide [HCTZ] 25 mg PO QDAY #30 tablet 08/02/16 06/02/19 Unknown Rx carvediloL [Coreg] 25 mg PO BID #60 tablet 01/03/17 06/02/19 Unknown Rx traMADoL [Ultram 50 MG tab] 50 mg PO Q6HR PRN tablet 08/13/18 06/02/19 Unknown Rx Metformin HCl [metFORMIN] 1,000 mg PO BID 06/02/19 06/02/19 Unknown History allopurinoL [Zyloprim] 300 mg PO QDAY 06/02/19 06/02/19 Unknown History hydrALAZINE [Apresoline TAB] 25 mg PO BID 06/02/19 06/02/19 Unknown History Aspirin EC [Halfprin EC] 81 mg PO QDAY #30 tablet.dr 06/03/19 Unknown Rx AtorvaSTATin [Lipitor] 40 mg PO QHS #30 tablet 06/03/19 Unknown Rx Pantoprazole [Protonix TAB] 40 mg PO QDAY #30 tablet 06/03/19 Unknown Rx predniSONE [Deltasone] 50 mg PO QDAY #5 tab 07/07/19 Unknown Rx Naproxen [Naprosyn TAB] 500 mg PO BID #20 tablet 08/19/19 Unknown Rx Oxycodone HCl/Acetaminophen 1 each PO Q6HR PRN #20 tablet 08/19/19 Unknown Rx [Percocet 10/325 mg] Acetaminophen [Non-Aspirin Extra 500 mg PO Q6HR PRN #30 tablet 10/04/19 Unknown Rx Strength] Albuterol Sulfate [Proair 90 mcg IH Q4HR PRN #2 aer.pow.ba 10/04/19 Unknown Rx Respiclick] Ibuprofen [Motrin] 600 mg PO Q8H PRN #30 tablet 10/04/19 Unknown Rx HYDROcodone/APAP 5-325 [[place] 1 each PO Q6HR PRN #7 tablet 04/07/20 Unknown Rx 5/325] ED Physical Exam - General Limitations: No Limitations General appearance: alert, in no apparent distress, obese - Head Head exam: Present: atraumatic, normocephalic - Eye Eye exam: Present: normal appearance, EOMI - ENT ENT exam: Present: mucous membranes moist - Neck Neck exam: Present: normal inspection - Respiratory Respiratory exam: Present: normal lung sounds bilaterally. Absent: respiratory distress - Cardiovascular Cardiovascular Exam: Present: regular rate, normal rhythm - GI/Abdominal GI/Abdominal exam: Present: soft. Absent: distended, tenderness - Extremities Exam Extremities exam: Present: normal inspection, other (No significant swelling present in bilateral knees; normal range of motion in bilateral shoulders) - Back Exam Back exam: Present: paraspinal tenderness - Neurological Exam Neurological exam: Present: alert, oriented X3. Absent: motor sensory deficit - Psychiatric Psychiatric exam: Present: normal affect, normal mood - Skin Skin exam: Present: warm, dry, intact, normal color ED Course Vital Signs 04/06/20 04/06/20 04/07/20 19:43 21:52 02:06 Temperature 98.5 F Pulse Rate 85 82 Respiratory 16 18 Rate Blood Pressure 194/114 Blood Pressure 190/125 153/95 [Left] O2 Sat by Pulse 99 100 Oximetry 04/07/20 04/07/20 04/07/20 02:07 04:15 04:58 Temperature 98.8 F Pulse Rate 65 86 Respiratory 18 18 18 Rate Blood Pressure Blood Pressure 156/81 156/81 [Left] O2 Sat by Pulse 100 99 100 Oximetry ED Medical Decision Making - Lab Data Result diagrams: 04/07/20 02:56 04/07/20 02:56 - Radiology Data Radiology results: report reviewed, image reviewed - Medical Decision Making 55-year-old female with history of chronic pain, arthritis, followed by top edge beveler. Patient reports exacerbation of her chronic back and bilateral knee pain. She also reports onset of bilateral shoulder pain. Patient reported subjective fevers at home and some shortness of breath, however she is afebrile here in the ED. Chest x-ray is normal. Labs are unremarkable. Patient received a medication here in the ED and is feeling much better. Will discharge home at this time, patient advised to follow-up with her top edge beveler. Prescriptions given. - Differential Diagnosis Pneumonia, chronic pain, arthritis, pulmonary edema Critical care attestation.: If time is entered above; I have spent that time in minutes in the direct care of this critically ill patient, excluding procedure time. ED Disposition Clinical Impression: Chronic pain, Arthritis Disposition: - TO HOME OR SELFCARE Is pt being admited?: No Condition: Stable Instructions: Osteoarthritis (ED) Prescriptions: HYDROcodone/APAP 5-325 [[place] 5/325] 1 each PO Q6HR PRN #7 tablet PRN Reason: Pain Referrals: PRIMARY CARE, [Primary Care Provider] - 3-5 Days Time of Disposition: 04:49
--- NOTE | 2020-04-07 03:09 | XRay Report ---
CHEST 1 VIEW 2:32 AM INDICATION / CLINICAL INFORMATION: Shortness of breath. Chest pain and fever. COMPARISON: 10/04/19. FINDINGS: SUPPORT DEVICES: None. HEART / MEDIASTINUM: There is mild cardiomegaly. Pulmonary vasculature is normal. There is mild aorti c tortuosity without aneurysm. LUNGS / PLEURA: No significant pulmonary or pleural abnormality. No pneumothorax. ADDITIONAL FINDINGS: No significant additional findings. IMPRESSION: No acute abnormality or significant change. Signer Name: Roberto Tapia MD Signed: 04/07/2020 3:05 AM Workstation Name: [id number]
[2020-04-07 03:25] LABS: Basophils % (Auto) 0.4 % (0.0-1.8); Lymphocytes # (Auto) 1.6 K/mm3 (1.2-5.4); Lymphocytes % (Auto) 33.7 % (13.4-35.0); Mean Corpuscular HGB Conc 34 % (30-34); Mean Corpuscular Volume 84 fl (79-97); Monocytes # (Auto) 0.4 K/mm3 (0.0-0.8); Monocytes % (Auto) 8.1 % (0.0-7.3); Platelet Count 224 K/mm3 (140-440); Red Blood Count 4.17 M/mm3 (3.65-5.03); Red Cell Distribution Width 17.2 % (13.2-15.2)
[2020-04-07 03:42] LABS: BUN/Creatinine Ratio 14; Blood Urea Nitrogen 14 mg/dL (7-17); Calcium 9.8 mg/dL (8.4-10.2); Hemolysis Index 1
[2020-04-07 04:16] VITALS: BP 156/81
== END 2020-04-07 04:59 | disposition home or self-care (01) ==
LOC: ED 18:49
DX: M19.91 Primary osteoarthritis, unspecified site (principal); I10 Essential (primary) hypertension; E11.9 Type 2 diabetes mellitus without complications; Z90.49 Acquired absence of other specified parts of digestive tract; Z98.890 Other specified postprocedural states; Z79.1 Long term (current) use of non-steroidal anti-inflammatories (NSAID); Z79.899 Other long term (current) drug therapy; Z88.8 Allergy status to other drugs, medicaments and biological substances
CPT/HCPCS: 36415; 71045; 80048; 85025; 96374; 96375; 99284; J1885; J2270

== ENCOUNTER 2021-02-22 12:53 | Outpatient (CLI) | payer OTHER ==
--- NOTE | 2021-02-24 14:02 | Mammography Report ---
DIGITAL SCREENING MAMMOGRAM WITH CAD, 02/22/2021 CLINICAL INFORMATION / INDICATION: Routine screening mammography. SCREENING MAMMOGRAM TECHNIQUE: Digital bilateral 2D mammography was obtained in the craniocaudal and mediolateral obliqu e projections. This examination was interpreted with the benefit of Computer-Aided Detection analysis . COMPARISON: 12/07/2018 FINDINGS: Breast Density: The breasts are almost entirely fatty. No dominant mass, suspicious calcifications, or architectural distortion in either breast. IMPRESSION: No mammographic evidence of malignancy. Follow up recommendation: Routine yearly BI-RADS Category 1: Negative. A "normal" or negative report should not discourage follow up or biopsy of a clinically significant f inding. A written summary of these findings will be mailed to the patient. The patient will be entered into a mammography reporting system which will generate a reminder letter for the patient's next appointmen t at the appropriate interval. The [employer] recommends yearly mammograms starting at age 40 and continuing as l estefany as a woman is in good health. Breast MRI is recommended for women with an approximate 20-25% or greater lifetime risk of breast cancer, including women with a strong family history of breast or ova alexander cancer or who have been treated for Hodgkin's disease. Signer Name: Bran Hayward MD Signed: 02/24/2021 1:57 PM Workstation Name: [id number]
== END 2021-02-22 12:54 | disposition home or self-care (01) ==
LOC: MAMMO 12:53
PROVIDERS: ATTEND Internal Medicine
DX: Z12.31 Encounter for screening mammogram for malignant neoplasm of breast (principal)
CPT/HCPCS: 77067

== ENCOUNTER 2021-05-17 12:33 | Outpatient (CLI) | payer OTHER | END 2021-05-17 12:34 | disposition home or self-care (01) | LOC: XRAY 12:33 | CPT/HCPCS: 72050 ==

== ENCOUNTER 2021-12-31 09:51 | Outpatient (CLI) | payer MEDICAID, OTHER ==
--- NOTE | 2021-12-31 11:48 | Fluoroscopy Report ---
BARIUM SWALLOW Indication: K30 FUNCTIONAL DYSPEPSIA. Technique: Single contrast barium technique utilized to evaluate the esophagus. FINDINGS: To begin the exam, swallowing was evaluated in the lateral position under direct fluorosco py. Swallowing was normal. No mucosal irregularity, mass, mass effect, or critical stenosis. There were no abnormal tertiary c ontractions as seen with dysmotility. No gastroesophageal reflux. IMPRESSION: Unremarkable exam. Fluoroscopic time: 1.7 minutes Number of fluoroscopic images: 23 Signer Name: Joel Raymond Jr, MD Signed: 12/31/2021 11:36 AM Workstation Name: [id number]
== END 2021-12-31 09:52 | disposition home or self-care (01) ==
LOC: FLUORO 09:51
PROVIDERS: ATTEND Surgery
DX: K30 Functional dyspepsia (principal)
CPT/HCPCS: 74220

== ENCOUNTER → 2022-01-18 | Outpatient (CLI) | payer MEDICAID | END | disposition home or self-care (01) | LOC: SLR 11:00 | PROVIDERS: ATTEND Surgery | DX: G47.30 Sleep apnea, unspecified (principal) | CPT/HCPCS: G0399 ==

== ENCOUNTER 2022-02-22 06:05 | Day surgery (SDC) | payer MEDICAID ==
[2022-02-22] MEDS ORDERED: SODIUM CHLORIDE 0.9% 1000 ML 1,000 ML IV SCH (07:00)
--- NOTE | 2022-02-22 07:25 | Anesthesia Day of Surgery ---
Anesthesia Day of Surgery - Day of Surgery Patient Examined: Yes Patient H&P Reviewed: Yes Patient is NPO: Yes
--- NOTE | 2022-02-22 07:26 | Anesthesia Consultation ---
Anesthesia Consult and Med Hx Date of service: 02/22/22 - Airway Anesthetic Teeth Evaluation: Good ROM Head & Neck: Adequate Mental/Hyoid Distance: Adequate Mallampati Class: Class II Intubation Access Assessment: Good - Pulmonary Exam CTA: Yes - Cardiac Exam Cardiac Exam: RRR - Pre-Operative Health Status ASA Pre-Surgery Classification: ASA3 Proposed Anesthetic Plan: MAC - Pulmonary Hx Asthma: No COPD: No Hx Pneumonia: No Hx Sleep Apnea: Yes - Cardiovascular System Hx Hypertension: Yes - Endocrine Hx End Stage Renal Disease: No - Other Systems Hx Obesity: Yes
[2022-02-22] MEDS ORDERED: LIDOCAINE MPF (2%) 20 MG/1 ML VIAL 5 ML ONE (07:39)
[2022-02-22] MEDS ORDERED: propofoL 200 MG/20 ML VIAL IV ONE (07:39)
[2022-02-22] MEDS ORDERED: MIDAZOLAM 2 MG/2 ML INJ ONE (07:39)
--- NOTE | 2022-02-22 08:02 | Discharge Summary ---
Providers - Providers Date of Admission: 02/22/2022 Date of discharge: 02/22/22 Attending physician: SIRISHA ANDERS MD Primary care physician: FAITH CUNHA Hospitalization Reason for admission: pre-op egd Condition: Good Procedures: egd with bx Hospital course: Pt presented for a pre-op EGD as part of planning for up coming bariatric surgery. Procedure was uneventful and pt recovered well and was discharged to home. Disposition: 01 HOME / SELF CARE / HOMELESS Final Discharge Diagnosis (Prints w/discharge instructions): morbid obesity, gerd Core Measure Documentation - Palliative Care Palliative Care/ Comfort Measures: Not Applicable - Core Measures Any of the following diagnoses?: none Exam - Physical Exam Narrative exam: unchanged from pre-op Plan Activity: advance as tolerated Diet: low carbohydrate Follow up with: FAITH CUNHA MD [Primary Care Provider] - 7 Days
--- NOTE | 2022-02-22 08:03 | Operative Report ---
Operative Report Operative Report: DATE: 02/22/2022 SURGERY: Upper endoscopy. SURGEON: Julieth Gastelum M.D. PROCEDURE: EGD with biopsy PRE OP DX: morbid obesity, GERD POST OP DX: morbid obesity, GERD TYPE OF ANESTHESIA: MAC. ESTIMATED BLOOD LOSS: None. COMPLICATIONS: None. SPECIMENS REMOVED: antral biopsy FINDINGS: 1. Small hiatal hernia. 2. gastritis INDICATIONS:INDICATION FOR PROCEDURE: Patient is a 56-year-old female with a long history of morbid obesity. She is planned to have a weight loss procedure and is here for preoperative planning EGD. PROCEDURE DETAILS: After consent was reviewed, patient was taken back to the operating room where patient was placed in the left lateral decubitus position and a bite block was placed in the mouth. After a time-out was called, MAC anesthesia was initiated. I then passed the endoscope into her oropharynx, into her esophagus, visualized the entire esophagus, which was all within normal limits. Z-line was noted to about 40cm from incisors. I then visualized the stomach and the first portion of the duodenum and there were no abnormalities I could clearly visualize except for generalized gastritis. A cold forceps biopsy of the antrum was taken and will be sent to pathology to evaluate for H.pylori. I then retroflexed the scope in the stomach and visualized the hiatus and I could see a small hiatal hernia. I then desufflated the stomach and removed the endoscope. Patient tolerated procedure well and was transferred to recovery room in good and stable condition.
--- NOTE | 2022-02-22 10:20 | Post Anesthesia Evaluation ---
- Post Anesthesia Evaluation Patient Participated: Yes Airway Patent: Yes Stable Respiratory Function: Yes Nausea/Vomiting: No Temp > 96.8F: Yes Pain Manageable: Yes Adequeate Hydration: Yes Anesthesia Complications: No
[2022-02-22 10:45] VITALS: BP 129/63
== END 2022-02-22 09:00 | disposition home or self-care (01) ==
LOC: GIO 06:05
PROVIDERS: ATTEND Surgery
DX: K21.9 Gastro-esophageal reflux disease without esophagitis (principal); K31.89 Other diseases of stomach and duodenum; E66.01 Morbid (severe) obesity due to excess calories; K29.70 Gastritis, unspecified, without bleeding; K44.9 Diaphragmatic hernia without obstruction or gangrene; K29.50 Unspecified chronic gastritis without bleeding; Z88.8 Allergy status to other drugs, medicaments and biological substances; Z79.82 Long term (current) use of aspirin; Z79.899 Other long term (current) drug therapy; Z68.43 Body mass index [BMI] 50.0-59.9, adult
CPT/HCPCS: 43239; 82962; 88305; J2250; J2704; J7030

== ENCOUNTER → 2022-03-02 | Outpatient (CLI) | payer MEDICAID | END | disposition home or self-care (01) | LOC: SLR 11:00 | PROVIDERS: ATTEND Surgery | DX: G47.33 Obstructive sleep apnea (adult) (pediatric) (principal) | CPT/HCPCS: 95811 ==